=== PATIENT | female | born 1955 | race Caucasian/White ===

== ENCOUNTER 2020-07-29 11:57 | Outpatient (REF) | payer MEDICAID, SELFPAY ==
--- NOTE | 2020-07-29 | MM_ITS ---
EXAMINATION: MM DIAGNOSTIC DIGITAL BREAST TOMOSYNTHESIS, BILATERAL CLINICAL INFORMATION: Probable benign island fibroglandular tissue upper outer left breast for follow-up. The lifetime risk of breast cancer based on the Tyrer-Cuzick Model is 6%. COMPARISON: Mammography: 07/19/2019, 01/18/2019, 07/12/2018, 06/22/2018, 04/22/2016 TECHNIQUE: Digital breast tomosynthesis is performed in both the craniocaudal and mediolateral oblique views along with computer-aided detection (CAD). Synthesized 2D images are generated from the tomosynthesis. FINDINGS: There are scattered areas of fibroglandular density (ACR BI-RADS breast composition Category b). Parenchymal pattern is similar to prior studies. The island of fibroglandular tissue mid upper outer left breast is similar to prior exams. There is no developing density, mass, architectural abnormality. Neither breast shows abnormal calcifications. The axilla and skin contours are unremarkable. Results are provided to the patient at time of visit by the technologist. IMPRESSION: No significant changes from prior studies. Island fibroglandular tissue mid upper outer left breast stable and considered benign. ASSESSMENT: BI-RADS 2: Benign RECOMMENDATION: Routine annual mammography screening. This patient's information was entered into a reminder system with a target due date for their next mammogram.
== END 2020-07-29 11:58 | disposition home or self-care (01) ==
LOC: HO.MAMMO 11:57
PROVIDERS: PCP Internal Medicine; Visit Provider Advanced Practice Midwife
DX: R92.2 Inconclusive mammogram (principal)
CPT/HCPCS: 77062; 77066

== ENCOUNTER → 2020-09-11 10:09 | Outpatient (BNVA) | payer MEDICAID, SELFPAY | PROVIDERS: Visit Provider Nurse Practitioner Family | DX: Z76.89 Persons encountering health services in other specified circumstances (principal) ==

== ENCOUNTER 2020-09-16 10:15 | Outpatient (REF) | payer MEDICAID, SELFPAY ==
[2020-09-16 10:56] LABS: Hematocrit 35.3 % (37-47); Hemoglobin 11.3 g/dl (12.0-16.0); Mean Corpuscular Hemoglobin 27.2 pg (27.0-33.0); Mean Corpuscular Volume 84.9 fL (80-98); Mean Platelet Volume 10.3 fL (9.4-12.3); Platelet Count 259 X10*3/uL (160-400); Red Blood Count 4.16 X10*6/uL (4.20-5.50); Red Cell Distribution Width 14.3 % (11.0-16.0); White Blood Count 8.3 X10*3/uL (4.8-10.8)
[2020-09-16 11:24] LABS: Alanine Aminotransferase 16 U/L (0-31); Albumin Level 4.1 g/dL (3.5-5.0); Alkaline Phosphatase 91 U/L (39-117); Anion Gap 14 (12-20); Aspartate Amino Transferase 18 U/L (5-31); Bilirubin Total 0.5 mg/dL (0.0-1.0); Blood Urea Nitrogen 34 mg/dL (9-16); Calcium 9.3 mg/dL (8.4-10.2); Carbon Dioxide 28 mmol/L (22-29); Chloride 101 mmol/L (96-108); Estimated Glomerular Filt Rate 40; Glucose Random 192 mg/dL (60-115); Potassium 3.9 mmol/l (3.3-5.1); Sodium 139 mmol/L (135-145); Total Protein 6.9 g/dL (6.5-8.0)
== END 2020-09-16 10:16 | disposition home or self-care (01) ==
LOC: HO.LAB 10:15
PROVIDERS: Visit Provider Nurse Practitioner Family
DX: Z12.11 Encounter for screening for malignant neoplasm of colon (principal)
CPT/HCPCS: 36415; 80053; 85027

== ENCOUNTER 2020-09-16 10:52 | Outpatient (REF) | payer MEDICAID, SELFPAY | END 2020-09-16 10:53 | disposition home or self-care (01) | LOC: HO.LAB 10:52 | PROVIDERS: Visit Provider Internal Medicine | DX: Z20.828 Contact with and (suspected) exposure to other viral communicable diseases (principal) | CPT/HCPCS: C9803; U0003 ==

== ENCOUNTER 2020-11-19 10:15 | Day surgery (SDC) | payer MEDICAID, SELFPAY ==
[2020-11-13 14:59] VITALS: BMI 25.7
--- NOTE | 2020-11-18 10:40 | P.CONAN_ITS ---
Documented by User: Sharmin Louis 11/18/20 10:40 HPI - Anesthesia Eval Consult details Narrative: 64yo F for Colonoscopy PMFSH Active Problems Active Problems: 64yo F for Colonoscopy Past Medical History Medical History (Updated 11/13/20 @ 14:59 by Rosa M Nuñez) Diabetes mellitus GERD (gastroesophageal reflux disease) HTN (hypertension) Family History Family History (Updated 09/11/20 @ 10:13 by Purnima Esteban [facility]) Father No problems noted. Mother Family history of high blood pressure Surgical History Surgical History (Updated 11/13/20 @ 14:45 by Rosa M Nuñez) History of colonoscopy Hx laparoscopic cholecystectomy Hx of tubal ligation Social History Social History (Updated 11/13/20 @ 14:58 by Rosa M Nuñez) Are you a primary pharmacist critical care to a significant other at home: No Do you presently have visiting nurse or other home services: Yes Alcohol intake: never Smoking Status: Never smoker Use of substances other than those prescribed or required for medical reasons: No Have you been hit, kicked, punched, or otherwise hurt by someone within the past year? If so, by whom?: No Advance Directives Information Provided: No Recently lost weight without trying: No Meds Allergies Allergy/AdvReac Type Severity Reaction Status Date / Time avocado Allergy Mild Nausea Verified 11/13/20 14:56 Penicillins [PCN] Allergy Mild RASH Verified 11/13/20 15:05 prednisone Allergy Unknown Unknown Verified 11/13/20 14:44 Home Medications Medication Instructions Recorded Confirmed Type citalopram 10 mg tablet 10 mg PO DAILY 09/11/20 11/13/20 History docusate sodium 100 mg capsule 100 mg PO DAILY 09/11/20 11/13/20 History hydrochlorothiazide 25 mg tablet 25 mg PO DAILY 09/11/20 11/13/20 History lisinopril 40 mg tablet 40 mg PO DAILY 09/11/20 11/13/20 History metformin 500 mg tablet 500 mg PO DAILY 09/11/20 11/13/20 History metoprolol succinate 50 mg 50 mg PO DAILY 09/11/20 11/13/20 History tablet,extended release 24 hr omeprazole 20 mg capsule,delayed 20 mg PO DAILY 09/11/20 11/13/20 History release Exam Exam Date and Time: November 18, 2020 1040 Height,Weight and Vital Signs: Height 5 ft 4 in Weight 68.039 kg Assessment and Plan Assessment Anesthesia Assessment: Chart Reviewed Documented by User: Ninoska Solorzano 11/19/20 10:54 [facility] Past Medical History Medical History (Updated 11/13/20 @ 14:59 by Rosa M Nuñez) Diabetes mellitus GERD (gastroesophageal reflux disease) HTN (hypertension) Family History Family History (Updated 09/11/20 @ 10:13 by Purnima Esteban [employer]) Father No problems noted. Mother Family history of high blood pressure Surgical History Surgical History (Updated 11/13/20 @ 14:45 by Rosa M Nuñez) History of colonoscopy Hx laparoscopic cholecystectomy Hx of tubal ligation Social History Social History (Updated 11/13/20 @ 14:58 by Rosa M Nuñez) Are you a primary pharmacist critical care to a significant other at home: No Do you presently have visiting nurse or other home services: Yes Alcohol intake: never Smoking Status: Never smoker Use of substances other than those prescribed or required for medical reasons: No Have you been hit, kicked, punched, or otherwise hurt by someone within the past year? If so, by whom?: No Advance Directives Information Provided: No Recently lost weight without trying: No Meds Allergies Allergy/AdvReac Type Severity Reaction Status Date / Time avocado Allergy Mild Nausea Verified 11/13/20 14:56 Penicillins [PCN] Allergy Mild RASH Verified 11/13/20 15:05 prednisone Allergy Unknown Unknown Verified 11/13/20 14:44 Home Medications Medication Instructions Recorded Confirmed Type citalopram 10 mg tablet 10 mg PO DAILY 09/11/20 11/13/20 History docusate sodium 100 mg capsule 100 mg PO DAILY 09/11/20 11/13/20 History hydrochlorothiazide 25 mg tablet 25 mg PO DAILY 09/11/20 11/13/20 History lisinopril 40 mg tablet 40 mg PO DAILY 09/11/20 11/13/20 History metformin 500 mg tablet 500 mg PO DAILY 09/11/20 11/13/20 History metoprolol succinate 50 mg 50 mg PO DAILY 09/11/20 11/13/20 History tablet,extended release 24 hr omeprazole 20 mg capsule,delayed 20 mg PO DAILY 09/11/20 11/13/20 History release Exam Airway Mallampati Class: II TM Dist: >3cm Neck ROM: Full Denture: Upper Heart: RRR Lungs: CTA BL Assessment and Plan Assessment Anesthesia Assessment: Anesthesia Plan Discussed and Chart Reviewed Final Anesthetic Review NPO: Yes ASA Class: III Final Preanesthetic Review: No Changes in Pt Med Stat and Consent Obtained/Reviewed Patient Risk: Intermediate Procedure Risk: Intermediate Anesthetic Plan Anesthetic Plan: MAC: Disposition: Standard PACU
[2020-11-19 10:25] VITALS: BP 122/71; PULSE 69; RESP 20; TEMP 36.6; O2SAT 98
[2020-11-19 10:31] LABS: Glucose, Whole Blood 192 mg/dL (60-115)
[2020-11-19] MEDS: Lactated Ringers 1,000 ML 100 ML IVCONT (10:38)
--- NOTE | 2020-11-19 10:48 | MHC.SHP ---
Pre-Procedural Eval Section B Chief Complaint: screening Relevant Family History (Specify if Yes): No Relevant Social History: None Present Medications: see Short Stay Collaborative assessment Medical History: Significant History (Diabetes mellitus GERD (gastroesophageal reflux disease) HTN (hypertension)) History of Previous Operations: Relevant previous surgery/procedure and date(s) (lap chol, tubal ligation) Allergies: Allergies Allergy/AdvReac Type Severity Reaction Status Date / Time avocado Allergy Mild Nausea Verified 11/13/20 14:56 Penicillins [PCN] Allergy Mild RASH Verified 11/13/20 15:05 prednisone Allergy Unknown Unknown Verified 11/13/20 14:44 Review of Systems Sugical H&P ROS: Negative: Constitution, Cardiovascular, Respiratory, Neurological, Psychiatric, Hem-Onc, Allergic/Immunologic, Gastrointestinal, Genitourinary, Musculoskeletal, Integumentary, Endocrine and Eyes/Ears/Nose/Throat Exam Surgical H&P Exam: Normal: HEENT, Normal: Heart, Normal: Lungs, Normal: Extremities, Normal: Abdomen, Normal: Skin and Normal: Neurological Plan Diagnosis/Plan: Unchanged I have reviewed the history and physical and performed a pertinent physical examination on my patient. No changes have occurred unless specified.
--- NOTE | 2020-11-19 12:14 | PM.OP ---
Brief Operative Note Date of Service: 11/19/20 Pre-op diagnosis: colon screening Post-op diagnosis: same Procedure: see op note Surgeon: Leann Suárez MD Anesthesia: MAC Estimated blood loss (mL): 0 Condition: stable Disposition: PACU
[2020-11-19 12:15] VITALS: BP 90/49; PULSE 61; RESP 16; TEMP 36.1; O2SAT 94
--- NOTE | 2020-11-19 12:15 | P.OP_ITS ---
Operative Note Operative Note Date of Service: 11/19/20 Narrative: Operative Information Procedure Description: Colonoscopy COLONOSCOPY Instrument: Olympus variable stiffness pediatric scope 190L Colonoscopy Monitoring: Vital signs and clinical assessment, continuous EKG monitoring, Pulse oximetry, Carbon Dioxide monitoring and blood pressure monitoring were done throughout the procedure. Colon withdrawal time was 45 minutes. Procedure: The patient was placed in the left lateral decubitis position and pre-procedure medications were administered. After a digital rectal examination of the ano-rectum, the video colonoscope was inserted into the rectum and advanced through the colon to the cecum/TI. The colonoscope was slowly withdrawn in a retrograde panoramic fashion and the colon mucosa was carefully examined including a retroflexed view of the rectum. Findings and interventions are described below. Procedure Difficulty:Hard Tight anal rectal stricture noted at about 7-8 cm from anal verge initially unable to bypass with EGD scope or colonoscope slim scope was used and able to get to ascending colon but unable to intubate cecum under endoscopic view 10-11 mm ballon used to dilate stricture and then EGD scope was able to get to cecum and TI. Findings: Terminal Ileum-normal Cecum:normal Ascending Colon: normal Transverse Colon -normal Descending Colon:normal Sigmoid Colon: scattered wide mouthed tics Rectum: Retroflexion with small internal hemorrhoids, grade I, no mass seen Anorectum - scarred and atrophied canal, with friable tissue, biopsies taken Colon preparation: [place] Bowel Preparation Scale Right colon; 2 Transverse colon: 2 Left colon; 1 (0 = Unprepared colon segment with mucosa not seen due to solid stool that cannot be cleared. 1 = Portion of mucosa of the colon segment seen, but other areas of the colon segment not well seen due to staining, residual stool and/or opaque liquid. 2 = Minor amount of residual staining, small fragments of stool and/or opaque liquid, but mucosa of colon segment seen well. 3 = Entire mucosa of colon segment seen well with no residual staining, small fragments of stool or opaque liquid) Impression and Post Procedure Diagnosis: anal canal stricture diverticulosis Plan: High fiber diet leaflet Avoid straining at stool, epsom salts and sitz bath, anusol supps or cream prn, stool softeners daily Repeat Colonoscopy in 1 year or earlier if clinically indicated refer to Dr Del Angel for further eval, if bx with neoplasia then refer oncology as well Above findings were reviewed with the patient and relevant handouts were provided if indicated.
[2020-11-19 12:30] VITALS: BP 107/56; PULSE 61; RESP 16; TEMP 36.1; O2SAT 98
--- NOTE | 2020-11-19 13:01 | HO.POSTANES ---
Post Anesthesia Evaluation Post Anesthesia Evaluation Vital Signs: Vital Signs Temp Pulse Resp BP Pulse Ox 11/19/20 12:30 97.0 F 61 16 107/56 L 98 11/19/20 12:15 97 F 61 16 90/49 L 94 11/19/20 10:25 98 F 69 20 122/71 98 Anesthesia: Monitored Mental Status: Awake Pain Control: Satisfactory Nausea/Vomiting: None Hydration: Adequate Anesthesia-Related Issues: No Anes. Related Issues
== END 2020-11-19 13:24 | disposition home or self-care (01) ==
PROVIDERS: Visit Provider Internal Medicine Gastroenterology
PROC: 0DJD8ZZ Inspection of Lower Intestinal Tract, Via Natural or Artificial Opening Endoscopic (ICD-10-PCS; CPT 45378; principal; 2020-11-19 11:40)
DX: Z12.11 Encounter for screening for malignant neoplasm of colon (principal); K62.4 Stenosis of anus and rectum; K57.30 Diverticulosis of large intestine without perforation or abscess without bleeding; K64.0 First degree hemorrhoids; K21.9 Gastro-esophageal reflux disease without esophagitis; I10 Essential (primary) hypertension; E11.9 Type 2 diabetes mellitus without complications; Z79.84 Long term (current) use of oral hypoglycemic drugs; Z79.899 Other long term (current) drug therapy; Z88.0 Allergy status to penicillin
CPT/HCPCS: 45386; 45380; 82947; 88305; C1726

== ENCOUNTER → 2020-11-26 12:40 | Outpatient (BNVA) | payer MEDICAID, SELFPAY | PROVIDERS: Visit Provider Nurse Practitioner Family ==

== ENCOUNTER → 2020-12-02 15:01 | Outpatient (BNVA) | payer MEDICAID, SELFPAY | PROVIDERS: Visit Provider Nurse Practitioner Family ==

== ENCOUNTER → 2020-12-08 15:24 | Outpatient (BNVA) | payer MEDICAID, SELFPAY | PROVIDERS: PCP Emergency Medicine; Visit Provider Surgery | DX: K62.4 Stenosis of anus and rectum (principal) | CPT/HCPCS: 99202 ==

== ENCOUNTER 2020-12-26 09:18 | Day surgery (SDC) | payer MEDICAID, SELFPAY ==
[2020-12-19 15:31] VITALS: BMI 25.0
--- NOTE | 2020-12-25 09:44 | P.CONAN_ITS ---
Documented by User: Sharmin Louis 12/25/20 09:45 HPI - Anesthesia Eval Consult details Narrative: 65yo F for Exam Under Anesthesia with Biopsy s/p colonoscopy with MAC 11/2020 [facility] Active Problems Active Problems: All Active Problems (Updated 12/19/20 @ 15:19 by Linda Osborne) Rectal stricture (Acute) Constipation (Acute) Past Medical History Medical History (Updated 12/19/20 @ 15:19 by Linda Osborne) Constipation Diabetes mellitus GERD (gastroesophageal reflux disease) HTN (hypertension) On beta ina at home Rectal stricture Family History Family History Father No problems noted. Mother Family history of high blood pressure Surgical History Surgical History History of colonoscopy Hx laparoscopic cholecystectomy Hx of tubal ligation Social History Social History Household Members: None Are you a primary behavioral health care manager to a significant other at home: No Do you presently have visiting nurse or other home services: No Alcohol intake: current Alcohol intake frequency: does not drink Smoking Status: Never smoker Use of substances other than those prescribed or required for medical reasons: No Have you been hit, kicked, punched, or otherwise hurt by someone within the past year? If so, by whom?: No Advance Directives: No Advance Directives Information Provided: No Advance Directives on File: No Recently lost weight without trying: No Current occupational status: disabled Meds Allergies Allergy/AdvReac Type Severity Reaction Status Date / Time avocado Allergy Mild Nausea Verified 12/19/20 15:18 Penicillins [PCN] Allergy Mild RASH Verified 12/19/20 15:18 prednisone Allergy Unknown Unknown Verified 12/19/20 15:18 Home Medications Medication Instructions Recorded Confirmed Last Taken Type citalopram 10 mg tablet 10 mg PO DAILY 09/11/20 12/19/20 Unknown History hydrochlorothiazide 25 mg tablet 25 mg PO DAILY 09/11/20 12/08/20 Unknown History lisinopril 40 mg tablet 40 mg PO DAILY 09/11/20 12/19/20 Unknown History metformin 500 mg tablet 500 mg PO DAILY 09/11/20 12/19/20 Unknown History metoprolol succinate 50 mg 50 mg PO DAILY 09/11/20 12/19/20 Unknown History tablet,extended release 24 hr aspirin 81 mg tablet,delayed 81 mg PO DAILY 12/08/20 12/19/20 Unknown History release acetaminophen [Pain Relief Extra 1 tab PO Q8H PRN 12/19/20 12/19/20 Unknown History Strength] albuterol sulfate [ProAir HFA] 2 puff PO Q4-6H PRN 12/19/20 12/19/20 Unknown History amlodipine 1 tab PO DAILY 12/19/20 12/19/20 Unknown History latanoprost 1 drp OPHTHALMIC (EYE) BEDTIME 12/19/20 12/19/20 Unknown History multivitamin [Daily-Tania] 1 tab PO DAILY 12/19/20 12/19/20 Unknown History polyvinyl alcohol [Artificial 1 drp OPHTHALMIC (EYE) QID 12/19/20 12/19/20 Unknown History Tears (polyvin alc)] Exam Exam Date and Time: December 25, 2020 0944 Height,Weight and Vital Signs: Height 5 ft 4 in Weight 66.224 kg Assessment and Plan Assessment Anesthesia Assessment: Chart Reviewed Documented by User: Marya Gonzales 12/26/20 09:25 [facility] Past Medical History Medical History (Updated 12/19/20 @ 15:19 by Linda Osborne) Constipation Diabetes mellitus GERD (gastroesophageal reflux disease) HTN (hypertension) On beta ina at home Rectal stricture Family History Family History Father No problems noted. Mother Family history of high blood pressure Surgical History Surgical History History of colonoscopy Hx laparoscopic cholecystectomy Hx of tubal ligation Social History Social History Household Members: None Are you a primary behavioral health care manager to a significant other at home: No Do you presently have visiting nurse or other home services: No Alcohol intake: current Alcohol intake frequency: does not drink Smoking Status: Never smoker Use of substances other than those prescribed or required for medical reasons: No Have you been hit, kicked, punched, or otherwise hurt by someone within the past year? If so, by whom?: No Advance Directives: No Advance Directives Information Provided: No Advance Directives on File: No Recently lost weight without trying: No Current occupational status: disabled Meds Allergies Allergy/AdvReac Type Severity Reaction Status Date / Time avocado Allergy Mild Nausea Verified 12/19/20 15:18 Penicillins [PCN] Allergy Mild RASH Verified 12/19/20 15:18 prednisone Allergy Unknown Unknown Verified 12/19/20 15:18 Home Medications Medication Instructions Recorded Confirmed Last Taken Type citalopram 10 mg tablet 10 mg PO DAILY 09/11/20 12/19/20 Unknown History hydrochlorothiazide 25 mg tablet 25 mg PO DAILY 09/11/20 12/08/20 Unknown History lisinopril 40 mg tablet 40 mg PO DAILY 09/11/20 12/19/20 Unknown History metformin 500 mg tablet 500 mg PO DAILY 09/11/20 12/19/20 Unknown History metoprolol succinate 50 mg 50 mg PO DAILY 09/11/20 12/19/20 Unknown History tablet,extended release 24 hr aspirin 81 mg tablet,delayed 81 mg PO DAILY 12/08/20 12/19/20 Unknown History release acetaminophen [Pain Relief Extra 1 tab PO Q8H PRN 12/19/20 12/19/20 Unknown History Strength] albuterol sulfate [ProAir HFA] 2 puff PO Q4-6H PRN 12/19/20 12/19/20 Unknown History amlodipine 1 tab PO DAILY 12/19/20 12/19/20 Unknown History latanoprost 1 drp OPHTHALMIC (EYE) BEDTIME 12/19/20 12/19/20 Unknown History multivitamin [Daily-Tania] 1 tab PO DAILY 12/19/20 12/19/20 Unknown History polyvinyl alcohol [Artificial 1 drp OPHTHALMIC (EYE) QID 12/19/20 12/19/20 Unknown History Tears (polyvin alc)] Exam Airway Mallampati Class: III Neck ROM: Full Denture: Upper Heart: RRR
[2020-12-26] VITALS (7 sets, daily range): BP systolic 113–128; BP diastolic 48–63; PULSE 60–71; RESP 16–20; TEMP 36.1–36.8; O2SAT 98–100
[2020-12-26 09:57] LABS: Glucose, Whole Blood 162 mg/dL (60-115)
[2020-12-26] MEDS: Lactated Ringers 1,000 ML 100 ML IVCONT (10:00)
--- NOTE | 2020-12-26 10:18 | MHC.SHP ---
Pre-Procedural Eval Section B Chief Complaint: Rectal stricture Allergies: Allergies Allergy/AdvReac Type Severity Reaction Status Date / Time avocado Allergy Mild Nausea Verified 12/26/20 09:27 Penicillins [PCN] Allergy Mild RASH Verified 12/26/20 09:27 prednisone Allergy Unknown Unknown Verified 12/26/20 09: Plan I have reviewed the history and physical and performed a pertinent physical examination on my patient. No changes have occurred unless specified.
--- NOTE | 2020-12-26 11:44 | P.OP_ITS ---
Operative Note Operative Note Date of Service: 12/26/20 Narrative: Preop diagnosis: Anal stricture Postop diagnosis: Anal stricture Procedure done: Exam under anesthesia, biopsy of an anal stricture Surgeon: Jesus Del Angel MD The patient is a 65 year female who had undergone a colonoscopy and was noted to have an anal stricture. She was therefore referred to me. She otherwise denies any significant anal pain. She states that she did not have any problems with bowel movements and denied constipation. She denies any significant bleeding per rectum. I therefore scheduled her for exam under anesthesia as examination in the office revealed a tight stricture in the anal canal. She understood the technique of procedure and she was aware of the risks, benefits, and alternatives. She was brought to the operating room and placed in prone prosper-knife position under general anesthesia via endotracheal tube. The buttocks were retracted with wide tape laterally. The perianal area was prepped in the usual sterile fashion. A surgical time-out was done. The perianal area was infiltrated with lidocaine 1%. I then attempted to introduce the Pam-Burton retractor into the anal orifice. However, the tight stricture in the anal canal was immediately encountered. I also attempted to insert the small-sized Anthony retractor instead but again this could not be inserted through the anal canal. I did a digital exam and this tight stricture was noted and could accommodate only my small 5th finger. I did not feel any obvious induration nor mass. I had asked the surgical brace maker to retract the anal opening so I could visualize this stricture directly. I took a biopsy of the area of the stricture using a DeBakey forceps and scissors. The visible area of the stricture otherwise did not appear to have a significant lesion. I applied a Gel-Foam packing into the anal canal for hemostasis. Once hemostasis was then confirmed I proceeded proceeded to infiltrate the perianal area with Marcaine 0.5% for postop analgesia. The procedure was then completed The patient tolerated the procedure well. There were no immediate complications. Estimated blood loss was about 2 cc. The patient was extubated without difficulty and transferred to the recovery room with stable vital signs.
--- NOTE | 2020-12-26 11:53 | PM.OP ---
Brief Operative Note Date of Service: 12/26/20 Pre-op diagnosis: Anal stricture Post-op diagnosis: same Surgeon: Jesus Del Angel MD Anesthesia: GLMA Estimated blood loss (mL): 5 Pathology: other (Biopsy of anal stricture) Condition: stable Disposition: PACU
[2020-12-26] MEDS: Throat Lozenge, Medicated LOZENGE 1 LOZENGE MUCOUS MEM (12:17)
--- NOTE | 2020-12-26 16:09 | HO.POSTANES ---
Post Anesthesia Evaluation Post Anesthesia Evaluation Vital Signs: Vital Signs Temp Pulse Resp BP Pulse Ox 12/26/20 12:35 97.0 F 60 17 121/60 99 12/26/20 12:20 65 16 126/63 98 12/26/20 12:05 64 18 122/57 L 100 12/26/20 12:00 69 20 113/57 L 99 12/26/20 11:55 68 16 117/56 L 100 12/26/20 11:50 98.1 F 71 17 117/48 L 98 12/26/20 09:49 98.3 F 65 16 128/61 99 Anesthesia: General Mental Status: Awake Pain Control: Satisfactory Nausea/Vomiting: None Hydration: Adequate Anesthesia-Related Issues: No Anes. Related Issues
== END 2020-12-26 13:31 | disposition home or self-care (01) ==
PROVIDERS: Visit Provider Surgery
PROC: (CPT 45100; principal; 2020-12-26 10:40)
DX: K62.4 Stenosis of anus and rectum (principal); I10 Essential (primary) hypertension; E11.9 Type 2 diabetes mellitus without complications; Z79.84 Long term (current) use of oral hypoglycemic drugs; Z79.82 Long term (current) use of aspirin; Z79.899 Other long term (current) drug therapy; Z88.0 Allergy status to penicillin; Z88.8 Allergy status to other drugs, medicaments and biological substances
CPT/HCPCS: 45100; 82947; 88305; J2250

== ENCOUNTER → 2020-12-30 13:19 | Outpatient (BNVA) | payer MEDICAID, SELFPAY | PROVIDERS: Visit Provider Nurse Practitioner Family ==

== ENCOUNTER → 2021-01-13 12:54 | Outpatient (BNVA) | payer MEDICAID, SELFPAY | PROVIDERS: Visit Provider Nurse Practitioner Family | DX: K59.00 Constipation, unspecified (principal) | CPT/HCPCS: 99212 ==

== ENCOUNTER 2021-01-19 12:50 | Emergency (ER) | payer MEDICAID, SELFPAY ==
[2021-01-19] VITALS (10 sets, daily range): BP systolic 145–169; BP diastolic 63–102; PULSE 50–79; RESP 14–19; TEMP 36.6; O2SAT 99–100; BMI 26.2
[2021-01-19 13:50] LABS: MANUAL DIFF FLAG NO
[2021-01-19 13:51] LABS: Basophils Percent Auto 0.2 % (0-2); Eosinophils Absolute Auto 0.1 X10*3/uL (0.0-0.4); Eosinophils Percent Auto 1.4 % (0-4); Hematocrit 33.4 % (37-47); Hemoglobin 10.5 g/dl (12.0-16.0); Imm Gran Abs Auto 0.01 X10*3/uL (0.00-0.03); Imm Gran Pct Auto 0.2 % (0.0-0.4); Lymphocytes Absolute Auto 2.5 X10*3/uL (1.2-4.9); Lymphocytes Percent Auto 40.3 % (20-40); Mean Corpuscular HGB Conc 31.4 g/dl (31.0-35.0); Mean Corpuscular Hemoglobin 27.3 pg (27.0-33.0); Mean Corpuscular Volume 86.8 fL (80-98); Monocytes Absolute Auto 0.5 X10*3/uL (0.1-1.2); Monocytes Percent Auto 8.1 % (2-11); Neutrophils Absolute Auto 3.1 X10*3/uL (2.0-8.3); Neutrophils Percent Auto 49.8 % (45-73); Platelet Count 228 X10*3/uL (160-400); Red Blood Count 3.85 X10*6/uL (4.20-5.50); Red Cell Distribution Width 14.6 % (11.0-16.0); White Blood Count 6.3 X10*3/uL (4.8-10.8)
[2021-01-19 14:19] LABS: Anion Gap 10 (12-20); Blood Urea Nitrogen 20 mg/dL (9-16); Calcium 8.8 mg/dL (8.4-10.2); Carbon Dioxide 27 mmol/L (22-29); Chloride 107 mmol/L (96-108); Creatinine Clr Calc Pharmacy 50.7; Estimated Glomerular Filt Rate 54; Glucose Random 155 mg/dL (60-115); Potassium 3.8 mmol/L (3.3-5.1); Sodium 140 mmol/L (135-145)
[2021-01-19 15:56] LABS: MANUAL DIFF FLAG NO
[2021-01-19 15:57] LABS: Basophils Percent Auto 0.3 % (0-2); Eosinophils Absolute Auto 0.1 X10*3/uL (0.0-0.4); Eosinophils Percent Auto 1.4 % (0-4); Hematocrit 33.9 % (37-47); Imm Gran Abs Auto 0.01 X10*3/uL (0.00-0.03); Imm Gran Pct Auto 0.1 % (0.0-0.4); Lymphocytes Absolute Auto 3.1 X10*3/uL (1.2-4.9); Lymphocytes Percent Auto 44.5 % (20-40); Mean Corpuscular HGB Conc 32.4 g/dl (31.0-35.0); Mean Corpuscular Hemoglobin 28.1 pg (27.0-33.0); Mean Corpuscular Volume 86.7 fL (80-98); Mean Platelet Volume 9.9 fL (9.4-12.3); Monocytes Absolute Auto 0.6 X10*3/uL (0.1-1.2); Monocytes Percent Auto 9.1 % (2-11); Neutrophils Absolute Auto 3.1 X10*3/uL (2.0-8.3); Neutrophils Percent Auto 44.6 % (45-73); Platelet Count 225 X10*3/uL (160-400); Red Blood Count 3.91 X10*6/uL (4.20-5.50); Red Cell Distribution Width 14.6 % (11.0-16.0); White Blood Count 7.1 X10*3/uL (4.8-10.8)
--- NOTE | 2021-01-19 15:57 | ED_ITS ---
HPI - General Adult General Chief complaint: General Medical Stated complaint: RECTAL BLEED X'S 2 MONTHS W/CONSTIPATION Time Seen by Provider: 01/19/21 15:46 Source: patient Mode of arrival: wheelchair Limitations: no limitations History of Present Illness HPI narrative: 65-year-old female with history of Diabetes mellitus, GERD, HTN, History of Previous Operations: lap chol, tubal ligation, colonoscopy, anal str icture with biopsy Colonoscopy and November [address] Suárez Anal stricture biopsy on December [address] Del Angel States has been having slight bleeding from rectum since intermittently pain Pronounced bleeding today having bed she soaked and fabiola blood with large clots. Colonoscopy findings Related Data Home Medications Medication Instructions Recorded Confirmed hydrochlorothiazide 25 mg tablet 25 mg PO DAILY 09/11/20 01/19/21 lisinopril 40 mg tablet 40 mg PO DAILY 09/11/20 01/19/21 metformin 500 mg tablet 500 mg PO BIDWM 09/11/20 01/19/21 metoprolol succinate 50 mg 50 mg PO DAILY 09/11/20 01/19/21 tablet,extended release 24 hr aspirin 81 mg tablet,delayed 81 mg PO DAILY 12/08/20 01/19/21 release acetaminophen [Pain Relief Extra 1 tab PO Q8H PRN 12/19/20 01/19/21 Strength] albuterol sulfate [ProAir HFA] 2 puff PO Q4-6H PRN 12/19/20 01/19/21 amlodipine 1 tab PO DAILY 12/19/20 01/19/21 latanoprost 1 drp OPHTHALMIC (EYE) BEDTIME 12/19/20 01/19/21 multivitamin [Daily-Tania] 1 tab PO DAILY 12/19/20 01/19/21 polyvinyl alcohol [Artificial 1 drp OPHTHALMIC (EYE) QID 12/19/20 01/19/21 Tears (polyvin alc)] citalopram 1 tab PO DAILY 01/19/21 01/19/21 glipizide 1 tab PO QAM 01/19/21 01/19/21 Previous Rx's Medication Instructions Recorded polyethylene glycol 3350 17 17 g PO ONCE #510 g 09/11/20 gram/dose oral powder docusate sodium 100 mg capsule 100 mg PO BEDTIME #30 cap 12/02/20 methylcellulose (laxative) 500 mg 500 mg PO DAILY #30 tab 12/02/20 tablet omeprazole 20 mg capsule,delayed 20 mg PO DAILY #30 cap 12/02/20 release sennosides 8.6 mg tablet 8.6 mg PO BEDTIME PRN #30 tab 12/30/20 magnesium oxide 400 mg PO DAILY #30 cap 01/13/21 Allergies Allergy/AdvReac Type Severity Reaction Status Date / Time avocado Allergy Mild Nausea Verified 01/13/21 13:17 Penicillins [PCN] Allergy Mild RASH Verified 01/13/21 13:17 prednisone Allergy Unknown Unknown Verified 01/13/21 13:17 [facility] Past Medical History Medical History Asthma Constipation Diabetes mellitus GERD (gastroesophageal reflux disease) HTN (hypertension) On beta ina at home Rectal stricture Surgical History History of colonoscopy Hx laparoscopic cholecystectomy Hx of excision of mass Hx of tubal ligation Family History Family History Father No problems noted. Mother Family history of high blood pressure Social History Social History Household Members: None Alcohol intake: unknown Smoking Status: Unknown if ever smoked Use of substances other than those prescribed or required for medical reasons: Unknown Advance Directives: No Advance Directives Information Provided: No Current occupational status: disabled Physical Exam Vital Signs: Vital Signs: Last Vital Signs Temp 97.9 F 01/19/21 16:31 Pulse 68 01/19/21 16:31 Resp 14 01/19/21 16:31 BP 161/66 H 01/19/21 16:31 Pulse Ox 99 01/19/21 16:21 Body Mass Index 26.2 Course Reevaluation(s) Reevaluation #1: 1545 Large clots from the rectum hemorrhaging fabiola blood Bed had saturated from her lower back to her knee area in blood. She is pale-appearing she and feeling a little bit does slightly appear anxious as well. Her vitals are stable at this time. Bilateral AC large-bore IV Type and screen order Labs Stat page to GI as well as General surgery 2 units of uncross matched blood ordered Consented Family at bedside Hemodynamically stable at this time having large rectal bleeding with clots in fabiola blood. Reevaluation #2: 1550 Consultations Consultation #1: [address] Del Angel at bedside Evaluate patient recommendation for angiogram did not have the services here recommend transfer to [facility] or appropriate service area. Consultation #2: [address] Griffin GI require angiogram. Also [facility] call back The medical center is currently a capacity not accepting any patients except for trauma Defer on transfer Page placed to [facility] Consultation #3: [id number] xfer line for ED to ED accepting Dr. Mcgill Will transfer by air Medical Decision Making Medical Records Medical records reviewed: Yes I reviewed the patient's medical records. Medical records narrative: Attached are notes from GI General surgery [address] [address] Operative NoteSigned Patient: Leoncio Warren#: [id number]: 7Acct:[id number]/Sex: 65 / FLoc:HO.SSS Attending Dr: Jesus Del Angel MD cc: Jesus Del Angel MD; Physician,Unknown ~ Operative Note Operative Note Date of Service: 12/26/20 Narrative: Preop diagnosis: Anal stricture Postop diagnosis: Anal stricture Procedure done: Exam under anesthesia, biopsy of an anal stricture Surgeon: Jesus Del Angel MD The patient is a 65 year female who had undergone a colonoscopy and was noted to have an anal stricture. She was therefore referred to me. She otherwise denies any significant anal pain. She states that she did not have any problems with bowel movements and denied constipation. She denies any significant bleeding per rectum. I therefore scheduled her for exam under anesthesia as examination in the office revealed a tight stricture in the anal canal. She understood the technique of procedure and she was aware of the risks, benefits, and alternatives. She was brought to the operating room and placed in prone prosper-knife position under general anesthesia via endotracheal tube. The buttocks were retracted with wide tape laterally. The perianal area was prepped in the usual sterile fashion. A surgical time-out was done. The perianal area was infiltrated with lidocaine 1%. I then attempted to introduce the Pam-Burton retractor into the anal orifice. However, the tight stricture in the anal canal was immediately encountered. I also attempted to insert the small-sized Anthony retractor instead but again this could not be inserted through the anal canal. I did a digital exam and this tight stricture was noted and could accommodate only my small 5th finger. I did not feel any obvious induration nor mass. I had asked the field installation technician to retract the anal opening so I could visualize this stricture directly. I took a biopsy of the area of the stricture using a DeBakey forceps and scissors. The visible area of the stricture otherwise did not appear to have a significant lesion. I applied a Gel-Foam packing into the anal canal for hemostasis. Once hemostasis was then confirmed I proceeded proceeded to infiltrate the p erianal area with Marcaine 0.5% for postop analgesia. The procedure was then completed The patient tolerated the procedure well. There were no immediate complications. Estimated blood loss was about 2 cc. The patient was extubated without difficulty and transferred to the recovery room with stable vital signs. Dictated By:Jesus Del Angel MDSigned By:<Electronically signed by Jesus szymanski MD>12/26/20 1341 DD/ 1144TD/TT: 12/26/20 1144Transcriptionist: GI note [place] [id number] Operative NoteSigned Patient: Leoncio Warren#: [id number]: 7Acct:[id number]/Sex: 64 / FADM Date: 11/19/20Loc:HO.SSS Attending Dr: Leann Suárez MD cc: Leann Suárez MD; Physician,Unknown ~ Operative Note Operative Note Date of Service: 11/19/20 Narrative: Operative Information Procedure Description: Colonoscopy COLONOSCOPY Instrument: Olympus variable stiffness pediatric scope 190L Colonoscopy Monitoring: Vital signs and clinical assessment, continuous EKG monitoring, Pulse oximetry, Carbon Dioxide monitoring and blood pressure monitoring were done throughout the procedure. Colon withdrawal time was 45 minutes. Procedure: The patient was placed in the left lateral decubitis position and pre-procedure medications were administered. After a digital rectal examination of the ano-rectum, the video colonoscope was inserted into the rectum and advanced through the colon to the cecum/TI. The colonoscope was slowly withdrawn in a retrograde panoramic fashion and the colon mucosa was carefully examined including a retroflexed view of the rectum. Findings and interventions are described below. Procedure Difficulty:Hard Tight anal rectal stricture noted at about 7-8 cm from anal verge initially unable to bypass with EGD scope or colonoscope slim scope was used and able to get to ascending colon but unable to intubate cecum under endoscopic view 10-11 mm ballon used to dilate stricture and then EGD scope was able to get to cecum and TI. Findings: Terminal Ileum-normal Cecum:normal Ascending Colon: normal Transverse Colon -normal Descending Colon:normal Sigmoid Colon: scattered wide mouthed tics Rectum: Retroflexion with small internal hemorrhoids, grade I, no mass seen Anorectum - scarred and atrophied canal, with friable tissue, biopsies taken Colon preparation: [place] Bowel Preparation Scale Right colon; 2 Transverse colon: 2 Left colon; 1 (0 = Unprepared colon segment with mucosa not seen due to solid stool that cannot be cleared. 1 = Portion of mucosa of the colon segment seen, but other areas of the colon segment not well seen due to staining, residual stool and/or opaque liquid. 2 = Minor amount of residual staining, small fragments of stool and/or opaque liquid, but mucosa of colon segment seen well. 3 = Entire mucosa of colon segment seen well with no residual staining, small fragments of stool or opaque liquid) Impression and Post Procedure Diagnosis: anal canal stricture diverticulosis Plan: High fiber diet leaflet Avoid straining at stool, epsom salts and sitz bath, anusol supps or cream prn, stool softeners daily Repeat Colonoscopy in 1 year or earlier if clinically indicated refer to Dr Del Angel for further eval, if bx with neoplasia then refer oncology as well Above findings were reviewed with the patient and relevant handouts were provided if indicated. Dictated By:Leann Suárez MDSigned By:<Electronically signed by Leann Suárez MD>11/19/20 1222 DD/ 1215TD/TT: 11/19/20 1215Transcriptionist: Lab Data Result diagrams: 01/19/21 15:51 01/19/21 15:51 Labs: Lab Results 01/19/21 01/19/21 01/19/21 Range/Units 13:44 13:44 13:44 WBC 6.3 (4.8-10.8) X10*3/uL RBC 3.85 L (4.20-5.50) X10*6/uL Hgb 10.5 L (12.0-16.0) g/dl Hct 33.4 L (37-47) % MCV 86.8 (80-98) fL MCH 27.3 (27.0-33.0) pg MCHC 31.4 (31.0-35.0) g/dl RDW 14.6 (11.0-16.0) % Plt Count 228 (160-400) X10*3/uL MPV 10.0 (9.4-12.3) fL Immature Gran % (Auto) 0.2 (0.0-0.4) % Neut % (Auto) 49.8 (45-73) % Lymph % (Auto) 40.3 H (20-40) % [place] % (Auto) 8.1 (2-11) % Eos % (Auto) 1.4 (0-4) % Baso % (Auto) 0.2 (0-2) % Lymph # (Auto) 2.5 (1.2-4.9) X10*3/uL [place] # (Auto) 0.5 (0.1-1.2) X10*3/uL Eos # (Auto) 0.1 (0.0-0.4) X10*3/uL Baso # (Auto) 0.0 (0.0-0.2) X10*3/uL Abs Immat Gran (auto) 0.01 (0.00-0.03) X10*3/uL Absolute Neuts (auto) 3.1 (2.0-8.3) X10*3/uL Absolute Nucleated RBC 0.000 (0.0-0.012) X10*3/uL Nucleated RBC % (auto) 0.0 (0.0-0.2) /100WBC PT (10.8-13.0) SEC INR (0.9-1.1) APTT (24.1-38.0) SEC Hold Blue Top SEE NOTE Sodium 140 (135-145) mmol/L Potassium 3.8 (3.3-5.1) mmol/L Chloride 107 (96-108) mmol/L Carbon Dioxide 27 (22-29) mmol/L Anion Gap 10 L (12-20) BUN 20 H (9-16) mg/dL Creatinine 1.03 (0.5-1.4) mg/dL Estim Creat Clear Calc 50.7 Estimated GFR 54 Random Glucose 155 H (60-115) mg/dL Calcium 8.8 (8.4-10.2) mg/dL Total Bilirubin (0.0-1.0) mg/dL AST (5-31) U/L ALT (0-31) U/L Alkaline Phosphatase (39-117) U/L Total Protein (6.5-8.0) g/dL Albumin (3.5-5.0) g/dL COVID-19 (LUBNA) (Negative) COVID-19 Clin Com Blood Type Antibody Screen Crossmatch 01/19/21 01/19/21 01/19/21 Range/Units 15:51 15:51 15:51 WBC 7.1 (4.8-10.8) X10*3/uL RBC 3.91 L (4.20-5.50) X10*6/uL Hgb 11.0 L (12.0-16.0) g/dl Hct 33.9 L (37-47) % MCV 86.7 (80-98) fL MCH 28.1 (27.0-33.0) pg MCHC 32.4 (31.0-35.0) g/dl RDW 14.6 (11.0-16.0) % Plt Count 225 (160-400) X10*3/uL MPV 9.9 (9.4-12.3) fL Immature Gran % (Auto) 0.1 (0.0-0.4) % Neut % (Auto) 44.6 L (45-73) % Lymph % (Auto) 44.5 H (20-40) % [place] % (Auto) 9.1 (2-11) % Eos % (Auto) 1.4 (0-4) % Baso % (Auto) 0.3 (0-2) % Lymph # (Auto) 3.1 (1.2-4.9) X10*3/uL [place] # (Auto) 0.6 (0.1-1.2) X10*3/uL Eos # (Auto) 0.1 (0.0-0.4) X10*3/uL Baso # (Auto) 0.0 (0.0-0.2) X10*3/uL Abs Immat Gran (auto) 0.01 (0.00-0.03) X10*3/uL Absolute Neuts (auto) 3.1 (2.0-8.3) X10*3/uL Absolute Nucleated RBC 0.000 (0.0-0.012) X10*3/uL Nucleated RBC % (auto) 0.0 (0.0-0.2) /100WBC PT 12.6 (10.8-13.0) SEC INR 1.1 (0.9-1.1) APTT 31.9 (24.1-38.0) SEC Hold Blue Top Sodium 141 (135-145) mmol/L Potassium 3.6 (3.3-5.1) mmol/L Chloride 107 (96-108) mmol/L Carbon Dioxide 25 (22-29) mmol/L Anion Gap 13 (12-20) BUN 20 H (9-16) mg/dL Creatinine 1.03 (0.5-1.4) mg/dL Estim Creat Clear Calc 50.7 Estimated GFR 54 Random Glucose 131 H (60-115) mg/dL Calcium 9.3 (8.4-10.2) mg/dL Total Bilirubin 0.6 (0.0-1.0) mg/dL AST 16 (5-31) U/L ALT 16 (0-31) U/L Alkaline Phosphatase 65 D (39-117) U/L Total Protein 6.7 (6.5-8.0) g/dL Albumin 4.0 (3.5-5.0) g/dL COVID-19 (LUBNA) (Negative) COVID-19 Clin Com Blood Type Antibody Screen Crossmatch 01/19/21 01/19/21 Range/Units 16:03 16:10 WBC (4.8-10.8) X10*3/uL RBC (4.20-5.50) X10*6/uL Hgb (12.0-16.0) g/dl Hct (37-47) % MCV (80-98) fL MCH (27.0-33.0) pg MCHC (31.0-35.0) g/dl RDW (11.0-16.0) % Plt Count (160-400) X10*3/uL MPV (9.4-12.3) fL Immature Gran % (Auto) (0.0-0.4) % Neut % (Auto) (45-73) % Lymph % (Auto) (20-40) % [place] % (Auto) (2-11) % Eos % (Auto) (0-4) % Baso % (Auto) (0-2) % Lymph # (Auto) (1.2-4.9) X10*3/uL [place] # (Auto) (0.1-1.2) X10*3/uL Eos # (Auto) (0.0-0.4) X10*3/uL Baso # (Auto) (0.0-0.2) X10*3/uL Abs Immat Gran (auto) (0.00-0.03) X10*3/uL Absolute Neuts (auto) (2.0-8.3) X10*3/uL Absolute Nucleated RBC (0.0-0.012) X10*3/uL Nucleated RBC % (auto) (0.0-0.2) /100WBC PT (10.8-13.0) SEC INR (0.9-1.1) APTT (24.1-38.0) SEC Hold Blue Top Sodium (135-145) mmol/L Potassium (3.3-5.1) mmol/L Chloride (96-108) mmol/L Carbon Dioxide (22-29) mmol/L Anion Gap (12-20) BUN (9-16) mg/dL Creatinine (0.5-1.4) mg/dL Estim Creat Clear Calc Estimated GFR Random Glucose (60-115) mg/dL Calcium (8.4-10.2) mg/dL Total Bilirubin (0.0-1.0) mg/dL AST (5-31) U/L ALT (0-31) U/L Alkaline Phosphatase (39-117) U/L Total Protein (6.5-8.0) g/dL Albumin (3.5-5.0) g/dL COVID-19 (LUBNA) Negative (Negative) COVID-19 Clin Com See Note Blood Type A Positive Antibody Screen NEGATIVE Crossmatch See Detail Critical Care Time Critical Care Time Critical Care Time: Yes Total Critical Care Time: 65 Attestation: GI hemorrhage, requiring rapid intervention including transfusion, consultation with multiple specialties including General surgery, GI, outside Centers for transfer and arrangement. Monitoring of hemodynamics stability. Discharge Plan Discharge Clinical Impression: Acute GI hemorrhage Patient Disposition: er [facility] Transfer Details: [facility] ED Prescriptions: No Action citalopram 20 mg tablet 1 tab PO DAILY RF: 0 glipizide 2.5 mg tablet extended release 24hr 1 tab PO QAM RF: 0 multivitamin [Daily-Tania] Tablet 1 tab PO DAILY RF: 0 latanoprost 0.005 % drops 1 drp ophthalmic (eye) BEDTIME RF: 0 polyvinyl alcohol [Artificial Tears (polyvin alc)] 1.4 % drops 1 drp ophthalmic (eye) QID RF: 0 amlodipine 5 mg tablet 1 tab PO DAILY RF: 0 acetaminophen [Pain Relief Extra Strength] 500 mg tablet 1 tab PO Q8H PRN (Reason: Pain) RF: 0 albuterol sulfate [ProAir HFA] 90 mcg/actuation HFA aerosol inhaler 2 puff PO Q4-6H PRN (Reason: Wheezing) RF: 0 metformin 500 mg tablet 500 mg PO BIDWM RF: 0 hydrochlorothiazide 25 mg tablet 25 mg PO DAILY RF: 0 metoprolol succinate 50 mg tablet extended release 24 hr 50 mg PO DAILY RF: 0 lisinopril 40 mg tablet 40 mg PO DAILY RF: 0 polyethylene glycol 3350 [Miralax] 17 gram/dose powder 17 g PO ONCE Qty: 510 RF: 0 aspirin 81 mg tablet,delayed release (DR/EC) 81 mg PO DAILY RF: 0 Citrucel 500 mg tablet 500 mg PO DAILY Qty: 30 RF: 2 docusate sodium 100 mg capsule 100 mg PO BEDTIME Qty: 30 RF: 2 omeprazole 20 mg capsule,delayed release(DR/EC) 20 mg PO DAILY Qty: 30 RF: 2 sennosides [Natural Senna Laxative] 8.6 mg tablet 8.6 mg PO BEDTIME PRN (Reason: constipation) Qty: 30 RF: 1 magnesium oxide 400 mg magnesium capsule 400 mg PO DAILY Qty: 30 RF: 2
[2021-01-19 16:03] LABS: INTERNATIONAL NORM RATIO 1.1 (0.9-1.1); Prothrombin Time 12.6 SEC (10.8-13.0)
[2021-01-19 16:06] LABS: Partial Thromboplastin Time 31.9 SEC (24.1-38.0)
--- NOTE | 2021-01-19 16:06 | PC.NURSE ---
bilateral ac 18g placed, 1l bolus started. large amount of bright red blood and clots noted. will call clerk and md perez at bedside.
[2021-01-19] MEDS: 0.9 % Sodium Chloride 500 ML IV (16:08)
[2021-01-19] MEDS: 0.9 % Sodium Chloride 1,000 ML 999 ML IV (16:08)
[2021-01-19 16:26] LABS: Alanine Aminotransferase 16 U/L (0-31); Alkaline Phosphatase 65 U/L (39-117); Anion Gap 13 (12-20); Aspartate Amino Transferase 16 U/L (5-31); Bilirubin Total 0.6 mg/dL (0.0-1.0); Blood Urea Nitrogen 20 mg/dL (9-16); Calcium 9.3 mg/dL (8.4-10.2); Carbon Dioxide 25 mmol/L (22-29); Chloride 107 mmol/L (96-108); Creatinine Clr Calc Pharmacy 50.7; Estimated Glomerular Filt Rate 54; Glucose Random 131 mg/dL (60-115); Potassium 3.6 mmol/L (3.3-5.1); Sodium 141 mmol/L (135-145); Total Protein 6.7 g/dL (6.5-8.0)
[2021-01-19] MEDS: LORazepam 2 MG/ML VIAL 1 MG IVPUSH (16:30)
[2021-01-19 16:37] LABS: COVID-19 Test Negative (Negative)
--- NOTE | 2021-01-19 17:07 | P.CONGS_ITS ---
History of Present Illness Consult details Consult date: 01/19/21 Narrative: 65-year-old female who is known to me, seen in the emergency room because of rectal bleeding. I had seen her last month because of anal stricture which was initially noted by GI on colonoscopy. I had done an exam under anesthesia last December 26, and she was noted to have a very tight stricture in the anal rectal region. This was circumferential. Biopsies of this were done showed only chronic inflammatory changes. She has not returned in the office for follow-up since then. She does states she has noticed some small amounts of blood on wiping bowel movements. However, this morning, she says this bleeding was noted to be much more in quantity. According to the family, there was note of says large amounts of blood seen on the toilet as well as on the bed. She was brought to the emergency room immediately and she continued to pass large amounts of bright red blood. She apparently had several of the sheets already here in the emergency room. Hemoglobin was 11 but she continued to have large amounts of bright blood. Transfusion was therefore ordered. She had remained stable hemodynamically. Review of Systems Constitutional: Constitutional: Denies chills and Denies fever(s) Cardiovascular: Cardiovascular: Denies chest pain at rest Respiratory: Respiratory: Denies cough Gastrointestinal: Gastrointestinal: Reports hematochezia Genitourinary: Genitourinary: Denies difficulty voiding PMFSH Past Medical History Medical History Asthma Constipation Diabetes mellitus GERD (gastroesophageal reflux disease) HTN (hypertension) On beta ina at home Rectal stricture Family History Family History Father No problems noted. Mother Family history of high blood pressure Surgical History Surgical History History of colonoscopy Hx laparoscopic cholecystectomy Hx of excision of mass Hx of tubal ligation Social History Social History Household Members: None Alcohol intake: unknown Smoking Status: Unknown if ever smoked Use of substances other than those prescribed or required for medical reasons: Unknown Advance Directives: No Advance Directives Information Provided: No Current occupational status: disabled Meds Allergies Allergy/AdvReac Type Severity Reaction Status Date / Time avocado Allergy Mild Nausea Verified 01/13/21 13:17 Penicillins [PCN] Allergy Mild RASH Verified 01/13/21 13:17 prednisone Allergy Unknown Unknown Verified 01/13/21 13:17 Home Medications Medication Instructions Recorded Confirmed Last Taken Type hydrochlorothiazide 25 mg tablet 25 mg PO DAILY 09/11/20 01/19/21 Unknown History lisinopril 40 mg tablet 40 mg PO DAILY 09/11/20 01/19/21 Unknown History metformin 500 mg tablet 500 mg PO BIDWM 09/11/20 01/19/21 Unknown History metoprolol succinate 50 mg 50 mg PO DAILY 09/11/20 01/19/21 Unknown History tablet,extended release 24 hr aspirin 81 mg tablet,delayed 81 mg PO DAILY 12/08/20 01/19/21 Unknown History release acetaminophen [Pain Relief Extra 1 tab PO Q8H PRN 12/19/20 01/19/21 Unknown History Strength] albuterol sulfate [ProAir HFA] 2 puff PO Q4-6H PRN 12/19/20 01/19/21 Unknown History amlodipine 1 tab PO DAILY 12/19/20 01/19/21 Unknown History latanoprost 1 drp OPHTHALMIC (EYE) BEDTIME 12/19/20 01/19/21 Unknown History multivitamin [Daily-Tania] 1 tab PO DAILY 12/19/20 01/19/21 Unknown History polyvinyl alcohol [Artificial 1 drp OPHTHALMIC (EYE) QID 12/19/20 01/19/21 Unknown History Tears (polyvin alc)] citalopram 1 tab PO DAILY 01/19/21 01/19/21 Unknown History glipizide 1 tab PO QAM 01/19/21 01/19/21 Unknown History Physical Exam Vital Signs: Vital Signs: Last Vital Signs Temp 97.9 F 01/19/21 16:38 Pulse 58 01/19/21 17:03 Resp 18 01/19/21 17:03 BP 145/71 H 01/19/21 17:03 Pulse Ox 100 01/19/21 17:03 Body Mass Index 26.2 Const: Other: Appears anxious General: no acute distress Resp: Effort & Inspection: normal respiratory effort Cardio: Rhythm: regular rhythm GI: Other: Rectal exam - passing bright blood steadily, unable to do a digital exam because of tenderness and pain Palpation (GI): Soft to palpation and nontender Results Labs Result diagrams: 01/19/21 15:51 01/19/21 15:51 Labs: Abnormal lab results 01/19/21 01/19/21 01/19/21 Range/Units 13:44 13:44 15:51 RBC 3.85 L 3.91 L (4.20-5.50) X10*6/uL Hgb 10.5 L 11.0 L (12.0-16.0) g/dl Hct 33.4 L 33.9 L (37-47) % Neut % (Auto) 44.6 L (45-73) % Lymph % (Auto) 40.3 H 44.5 H (20-40) % Anion Gap 10 L (12-20) BUN 20 H (9-16) mg/dL Random Glucose 155 H (60-115) mg/dL Crossmatch 01/19/21 01/19/21 Range/Units 15:51 16:03 RBC (4.20-5.50) X10*6/uL Hgb (12.0-16.0) g/dl Hct (37-47) % Neut % (Auto) (45-73) % Lymph % (Auto) (20-40) % Anion Gap (12-20) BUN 20 H (9-16) mg/dL Random Glucose 131 H (60-115) mg/dL Crossmatch See Detail Short CBC 01/19/21 01/19/21 Range/Units 13:44 15:51 WBC 6.3 7.1 (4.8-10.8) X10*3/uL Hgb 10.5 L 11.0 L (12.0-16.0) g/dl Hct 33.4 L 33.9 L (37-47) % Plt Count 228 225 (160-400) X10*3/uL BMP 01/19/21 01/19/21 13:44 15:51 Sodium 140 141 Potassium 3.8 3.6 Chloride 107 107 Carbon Dioxide 27 25 BUN 20 H 20 H Creatinine 1.03 1.03 Calcium 8.8 9.3 Liver Function 01/19/21 Range/Units 15:51 Total Bilirubin 0.6 (0.0-1.0) mg/dL AST 16 (5-31) U/L ALT 16 (0-31) U/L Alkaline Phosphatase 65 D (39-117) U/L Albumin 4.0 (3.5-5.0) g/dL All other labs normal. Assessment and Plan (1) Acute GI hemorrhage: Status: Inactive She continues to pass blood here in the emergency room. This seems to actually when pressure is applied with bulky gauze on the anal area. She does have the stricture in the anal rectal area and biopsies of this had shown inflammatory changes. She did have massive bleeding noted here in the emergency room so we had d iscussed going to localize this with angiogram. This had been discussed by the emergency room staff with the radiologist. After discussions with services involved, it was deemed that would be best to transfer the patient for angiogram in a tertiary hospital. I agreed with this plan. I explained the above to the family was at bedside. The patient remained hemodynamically stable here in the emergency room during the examination.
--- NOTE | 2021-01-19 17:23 | PC.NURSE ---
life flight here to take pt
--- NOTE | 2021-01-19 17:24 | PC.NURSE ---
estimated blood loss of around 3 units
== END 2021-01-19 17:33 | disposition short-term general hospital (02) ==
PROVIDERS: Nurse Practitioner Primary Care; Emergency Provider Emergency Medicine
DX: K92.2 Gastrointestinal hemorrhage, unspecified (principal); K59.00 Constipation, unspecified; F41.9 Anxiety disorder, unspecified; Z20.822 Contact with and (suspected) exposure to COVID-19; E11.9 Type 2 diabetes mellitus without complications; K21.9 Gastro-esophageal reflux disease without esophagitis; I10 Essential (primary) hypertension; Z79.84 Long term (current) use of oral hypoglycemic drugs; Z79.82 Long term (current) use of aspirin; Z79.899 Other long term (current) drug therapy
CPT/HCPCS: 36415; 36430; 80048; 80053; 85025; 85610; 85730; 86850; 86900; 86920; 86923; 87635; 96361; 96374; 99285; 99291; J2060; P9016

== ENCOUNTER → 2021-02-04 09:54 | Outpatient (BNV) | payer MEDICAID, OTHER, SELFPAY | PROVIDERS: PCP Family Medicine; Referring Provider Family Medicine; Visit Provider Internal Medicine Medical Oncology | DX: C21.0 Malignant neoplasm of anus, unspecified (principal); D50.9 Iron deficiency anemia, unspecified | CPT/HCPCS: 99204; 99213; 99214 ==

== ENCOUNTER 2021-02-19 10:51 | Outpatient (REF) | payer MEDICAID, SELFPAY ==
[2021-02-25 00:53] LABS: HPV mRNA E6/E7 rflx Not Detected (Not Detected)
== END 2021-02-19 10:52 | disposition home or self-care (01) ==
LOC: HO.LAB 10:51
PROVIDERS: Visit Provider Obstetrics & Gynecology
DX: Z01.419 Encounter for gynecological examination (general) (routine) without abnormal findings (principal); Z11.51 Encounter for screening for human papillomavirus (HPV)
CPT/HCPCS: 87624; 88142

== ENCOUNTER 2021-02-23 17:36 | Emergency (ER) | payer MEDICAID, SELFPAY ==
--- NOTE | ~2021-02-23 | CT_ITS ---
EXAMINATION: CT ABDOMEN AND PELVIS WITHOUT CONTRAST CLINICAL INFORMATION: Abdominal pain. Constipation. History of rectal cancer. COMPARISON: None TECHNIQUE: Multidetector volumetric imaging was performed from the superior aspect of the liver through the pubic symphysis. Sagittal and coronal reformatted images were obtained on the technologist's workstation. This CT examination was performed using dose optimization techniques as appropriate, variously including the following: *Automated exposure control *Adjustment of mA and/or kV according to patient size (this includes techniques or standardized protocols for targeted exams where dose is matched to indication/reason for exam; i.e. extremities or head) *Use of iterative reconstruction technique DLP: 649 mGy-cm FINDINGS: LUNG BASES: The visualized lung bases are unremarkable. LIVER, GALLBLADDER, AND BILIARY TREE: The liver is normal in size, shape, and attenuation. No focal hepatic lesion or biliary ductal dilatation is present. The gallbladder has been removed. PANCREAS: Unremarkable. SPLEEN: Unremarkable. ADRENAL GLANDS: There is a 1 x 1.5 cm low-attenuation left adrenal nodule. Hounsfield units measure -24 suggestive of a benign lipid rich adenoma. The right adrenal gland is normal. KIDNEYS AND URETERS: The kidneys are normal in size, shape, and attenuation. No hydronephrosis, hydroureter, or calculi seen. No perinephric stranding. BLADDER: Unremarkable. GASTROINTESTINAL TRACT: There is a large amount of stool seen in the colon suggestive of constipation. The colon is dilated down to the rectum. There is a large rectal mass. There may be distal large bowel obstruction due to the rectal mass. There is diverticulosis of the colon. No evidence of diverticulitis is seen. The appendix is normal. The stomach is normal. There is a small amount of fluid seen in the left lower quadrant and in the presacral space. ABDOMINAL WALL: No significant hernia is appreciated. LYMPH NODES: There are no enlarged lymph nodes. VASCULAR: Unremarkable. PELVIC VISCERA: Unremarkable. OSSEOUS STRUCTURES: There are degenerative changes of the spine. CT/CT abdomen pelvis wo con IMPRESSION: Severe constipation. The colon is dilated to the rectum and there may be secondary distal large bowel obstruction. Diverticulosis of the colon. No evidence of diverticulitis. Small low-attenuation left adrenal lesion probably representing a lipid rich adenoma.
[2021-02-23 19:49] VITALS: BP 185/65; PULSE 58; RESP 22; TEMP 36.4; O2SAT 100; BMI 27.7
[2021-02-23 20:05] LABS: Glucose Urine UA NEG (NEG); Leukocyte Esterase Urine NEG (NEG); Nitrite Urine NEG (NEG); Specific Gravity - Urine 1.025 (1.005-1.025); Urine Blood TRACE (NEG); Urine Ketones 15 MG/DL (NEG); Urine Protein TRACE MG/DL (NEG-TRACE)
[2021-02-23 20:07] LABS: Appearance Urine CLEAR; Color Urine YELLOW
[2021-02-23 20:34] LABS: RBC Urine 0-2 /HPF (0); WBC Urine 0-2 /HPF (0-4)
[2021-02-23 20:35] LABS: Squamous Epithelial Cell Urine TRACE /LPF
--- NOTE | 2021-02-23 20:38 | ED.ABDPAIN ---
HPI - Abdominal Pain General Chief Complaint: Abdominal Pain Stated Complaint: constipation Time Seen by Provider: 02/23/21 21:19 Source: patient and family Mode of arrival: ambulatory Limitations: language barrier History of Present Illness HPI narrative: 65-year-old female with past medical history of hypertension, hyperlipidemia, diabetes, recent diagnosis of anal cancer presents with several days of abdominal pain, constipation, and poor p.o. intake. Patient's family has been giving her MiraLax, Mag citrate, milk of magnesia, Colace, senna with poor effect. Patient is in 10/10 pain, and states that she cannot tolerate the pain even with prescribed morphine. MD elicited complaint: abdominal pain Pertinent past history: other (Anal carcinoma) Onset (ago): week(s) Pain Consistency: constant Location: diffuse Severity: severe Pain scale (0-10): 10 Quality: cramping, aching and fullness Exacerbating factors: movement Relieving factors: nothing Associated symptoms: nausea, constipation and anorexia Treatments prior to arrival: prescription analgesics Related Data Home Medications Medication Instructions Recorded Confirmed lisinopril 40 mg tablet 40 mg PO DAILY 09/11/20 02/04/21 metoprolol succinate 50 mg 50 mg PO DAILY 09/11/20 02/04/21 tablet,extended release 24 hr aspirin 81 mg tablet,delayed 81 mg PO DAILY 12/08/20 02/04/21 release acetaminophen [Pain Relief Extra 1 tab PO Q8H PRN 12/19/20 02/04/21 Strength] albuterol sulfate [ProAir HFA] 2 puff PO Q4-6H PRN 12/19/20 02/04/21 latanoprost 1 drp OPHTHALMIC (EYE) BEDTIME 12/19/20 02/04/21 multivitamin [Daily-Tania] 1 tab PO DAILY 12/19/20 02/04/21 polyvinyl alcohol [Artificial 1 drp OPHTHALMIC (EYE) QID 12/19/20 02/04/21 Tears (polyvin alc)] citalopram 1 tab PO DAILY 01/19/21 02/04/21 glipizide 1 tab PO QAM 01/19/21 02/04/21 pantoprazole 1 tab PO BID 02/04/21 02/04/21 oxycodone 1 tab PO Q8H PRN 02/11/21 02/11/21 Previous Rx's Medication Instructions Recorded polyethylene glycol 3350 17 17 g PO ONCE #510 g 09/11/20 gram/dose oral powder morphine [MS Contin] 30 mg PO Q12H #60 tab 02/04/21 sennosides-docusate sodium 2 tab-cap PO BID #60 tab 02/17/21 [Senna-S] ondansetron HCl [Zofran] 8 mg PO Q8H PRN #50 tab 02/19/21 Allergies Allergy/AdvReac Type Severity Reaction Status Date / Time avocado Allergy Mild Nausea Verified 02/23/21 19:47 Penicillins [PCN] Allergy Mild RASH Verified 02/23/21 19:47 prednisone Allergy Unknown Unknown Verified 02/23/21 19:47 Review of Systems Review of Systems Constitutional: No Weight loss, No Fever, No Chills, No Night Sweats, No Fatigue, No Malaise ENT/Mouth: No Hearing loss, No Ear Pain, No Nasal Congestion, No Sinus Pain, No Hoarseness, No sore throat, No Rhinorrhea, No Swallowing Difficulty Eyes: No Eye Pain, No Swelling, No Redness, No Foreign Body, No Discharge, No Vision Changes Cardiovascular: No Chest Pain, No SOB, No Dyspnea on Exertion, No Orthopnea, No Edema, No Palpitations Respiratory: No Cough, No Sputum, No Wheezing, No Smoke Exposure, No Dyspnea Gastrointestinal: Positive Nausea, no Vomiting, no Diarrhea, positive abdominal Pain, No Hematochezia, No Melena Genitourinary: no irregular bleeding, No Dysuria, No Urinary Frequency, No Hematuria, No Urinary Incontinence, No Urgency, No Flank Pain, No Urinary Flow Changes, No Hesitancy Musculoskeletal: No joint pain, No Myalgias, No Joint Swelling Skin: No Skin Lesions, No rash Neuro: No Weakness, No Numbness, No Paresthesias, No Loss of Consciousness, No Dizziness, No Headache Psych: No Anxiety/Panic, No Depression, No SI/HI/AH/VH, No Social Issues Heme/Lymph: No Bruising, No Bleeding,No Lymphadenopathy Endocrine: No Polyuria, No Polydipsia, No Temperature Intolerance Yes all other systems are reviewed and are negative Physical Exam Vital Signs: Vital Signs: Last Vital Signs Temp 98.0 F 02/23/21 23:58 Pulse 63 02/23/21 23:58 Resp 16 02/23/21 23:58 BP 157/64 H 02/23/21 23:58 Pulse Ox 95 02/23/21 23:58 Body Mass Index 27.7 Appearance: Alert. Oriented X3. Severe distress. Head: Normal external exam. Normocephalic. Atraumatic. No Batista signs noted. No raccoon eyes noted Eyes: PERRLA. EOMI. Conjunctiva and sclera normal. Eyelids normal. ENT: TM's Normal. Pharynx normal. Uvula midline. Dry mucous membranes. No trismus noted. No drooling noted. No muffled voice noted. Neck: Normal inspection. Neck supple. No adenopathy. CVS: Normal heart rate and rhythm. Heart sound normal. No murmurs noted. Pulses equal to all extremities. Respiratory: No respiratory distress. Painless inspiration. Breath sounds normal. No wheezes/rales/rhonchi noted. Chest nontender. No accessory muscle usage noted or decreased air movement noted. Abdomen: distended, diffusely tender. Bowel sounds diminished in all 4 quadrants. Back: No CVA tenderness. Full range of motion noted. Skin: Skin warm and dry. Pale skin color. Normal skin turgor. No rashes/lesions/lacerations noted. Extremities: No lower extremity edema. Extremities exhibit normal range of motion. Extremities nontender. Neuro: cranial nerves 2-12 intact, no focal neural deficits, strength 5/5 to all extremities, No motor deficit. No sensory deficit. Course Course Course Narrative: 65-year-old female with past medical history of hypertension, hyperlipidemia, diabetes, recent diagnosis of anal carcinoma presents with constipation, abdominal pain, and anorexia. Pain has not been relieved with her doses of morphine and family has been giving her MiraLax, Colace, senna, Mag citrate, and milk of magnesia with poor effect. This is highly suspicious for obstruction, patient will remain NPO, last meal was a few sips and a bite of food earlier this morning. Patient was evaluated here on 01/19/2021 and was life flighted to [facility] for rectal bleeding. Will give 6 mg of morphine for pain management, and CT scan of abdomen and pelvis. 1 L of fluid of normal saline. Pain management ineffective, will give Dilaudid [address] scan is positive for large rectal mass, based on the CT scan it would be unsafe to try to disimpact or give any medications per rectum. Dr. Bustamante also visualized the CT scan and agrees with this plan. Discussion with family regarding plan of care, will call out to surgery and hospitalist. 11:07 p.m. discussion with surgery on-call Dr. Huertas, we were unable to complete the procedure required at this facility. Discussion with hospitalist at 11:12 p.m. hospitalist cannot accept this patient as we are unable to appropriately care for this patient and provide surgical intervention required. Call out to [facility], 11:25 p.m. plan of care is to admit to [facility] Emergency Department. Consultations Consultation #1: Patricio Time: 23:07 Consultation #2: Deanna Time: 23:12 Consultation #3: [facility] Time: 23:25 MDM - Abdominal Pain Differential Diagnosis Differential diagnosis: Likely abdominal pain, acute appendicitis, bowel perforation, constipation and small bowel obstruction Medical Records Attestation: I reviewed the patient's medical records. Lab Data Attestation: I reviewed the patient's lab results. Result diagrams: 02/23/21 22:06 02/23/21 20:55 Labs: Lab Results 02/23/21 02/23/21 02/23/21 Range/Units 19:56 20:55 20:55 WBC (4.8-10.8) X10*3/uL RBC (4.20-5.50) X10*6/uL Hgb (12.0-16.0) g/dl Hct (37-47) % MCV (80-98) fL MCH (27.0-33.0) pg MCHC (31.0-35.0) g/dl RDW (11.0-16.0) % Plt Count (160-400) X10*3/uL MPV (9.4-12.3) fL Immature Gran % (Auto) (0.0-0.4) % Neut % (Auto) (45-73) % Lymph % (Auto) (20-40) % [place] % (Auto) (2-11) % Eos % (Auto) (0-4) % Baso % (Auto) (0-2) % Lymph # (Auto) (1.2-4.9) X10*3/uL [place] # (Auto) (0.1-1.2) X10*3/uL Eos # (Auto) (0.0-0.4) X10*3/uL Baso # (Auto) (0.0-0.2) X10*3/uL Abs Immat Gran (auto) (0.00-0.03) X10*3/uL Absolute Neuts (auto) (2.0-8.3) X10*3/uL Absolute Nucleated RBC (0.0-0.012) X10*3/uL Nucleated RBC % (auto) (0.0-0.2) /100WBC PT 13.5 H (10.8-13.0) SEC INR 1.1 (0.9-1.1) APTT 21.8 L D (24.1-38.0) SEC Sodium 137 (135-145) mmol/L Potassium 4.2 (3.3-5.1) mmol/L Chloride 98 (96-108) mmol/L Carbon Dioxide 27 (22-29) mmol/L Anion Gap 16 (12-20) BUN 24 H (9-16) mg/dL Creatinine 1.04 (0.5-1.4) mg/dL Estim Creat Clear Calc 45.7 Estimated GFR 53 POC Glucose (60-115) mg/dL Random Glucose 132 H (60-115) mg/dL Calcium 9.0 (8.4-10.2) mg/dL Total Bilirubin 0.3 (0.0-1.0) mg/dL Direct Bilirubin < 0.2 (0.0-0.5) mg/dL AST 23 D (5-31) U/L ALT 15 (0-31) U/L Alkaline Phosphatase 79 (39-117) U/L Troponin I High Sens (<3.5-17.0) ng/L Total Protein 6.5 (6.5-8.0) g/dL Albumin 3.6 (3.5-5.0) g/dL Lipase 13 (8-78) U/L Urine Color YELLOW Urine Appearance CLEAR Urine pH 6.0 (5.0-8.0) Ur Specific [place] 1.025 (1.005-1.025) Urine Protein TRACE (NEG-TRACE) MG/DL Urine Glucose (UA) NEG (NEG) MG/DL Urine Ketones 15 (NEG) MG/DL Urine Blood TRACE (NEG) Urine Nitrite NEG (NEG) Ur Leukocyte Esterase NEG (NEG) Urine RBC 0-2 (0) /HPF Urine WBC 0-2 (0-4) /HPF Ur Squamous Epith Cells TRACE /LPF Urine Bacteria NONE /LPF 02/23/21 02/23/21 02/23/21 Range/Units 20:55 22:03 22:06 WBC 9.2 (4.8-10.8) X10*3/uL RBC 3.77 L (4.20-5.50) X10*6/uL Hgb 10.5 L (12.0-16.0) g/dl Hct 32.3 L (37-47) % MCV 85.7 (80-98) fL MCH 27.9 (27.0-33.0) pg MCHC 32.5 (31.0-35.0) g/dl RDW 13.8 (11.0-16.0) % Plt Count 261 D (160-400) X10*3/uL MPV 9.3 L (9.4-12.3) fL Immature Gran % (Auto) 0.5 H (0.0-0.4) % Neut % (Auto) 67.9 (45-73) % Lymph % (Auto) 20.7 (20-40) % [place] % (Auto) 10.5 (2-11) % Eos % (Auto) 0.3 (0-4) % Baso % (Auto) 0.1 (0-2) % Lymph # (Auto) 1.9 (1.2-4.9) X10*3/uL [place] # (Auto) 1.0 (0.1-1.2) X10*3/uL Eos # (Auto) 0.0 (0.0-0.4) X10*3/uL Baso # (Auto) 0.0 (0.0-0.2) X10*3/uL Abs Immat Gran (auto) 0.05 H (0.00-0.03) X10*3/uL Absolute Neuts (auto) 6.3 (2.0-8.3) X10*3/uL Absolute Nucleated RBC 0.000 (0.0-0.012) X10*3/uL Nucleated RBC % (auto) 0.0 (0.0-0.2) /100WBC PT (10.8-13.0) SEC INR (0.9-1.1) APTT (24.1-38.0) SEC Sodium (135-145) mmol/L Potassium (3.3-5.1) mmol/L Chloride (96-108) mmol/L Carbon Dioxide (22-29) mmol/L Anion Gap (12-20) BUN (9-16) mg/dL Creatinine (0.5-1.4) mg/dL Estim Creat Clear Calc Estimated GFR POC Glucose 138 H (60-115) mg/dL Random Glucose (60-115) mg/dL Calcium (8.4-10.2) mg/dL Total Bilirubin (0.0-1.0) mg/dL Direct Bilirubin (0.0-0.5) mg/dL AST (5-31) U/L ALT (0-31) U/L Alkaline Phosphatase (39-117) U/L Troponin I High Sens < 3.5 (<3.5-17.0) ng/L Total Protein (6.5-8.0) g/dL Albumin (3.5-5.0) g/dL Lipase (8-78) U/L Urine Color Urine Appearance Urine pH (5.0-8.0) Ur Specific Phelan (1.005-1.025) Urine Protein (NEG-TRACE) MG/DL Urine Glucose (UA) (NEG) MG/DL Urine Ketones (NEG) MG/DL Urine Blood (NEG) Urine Nitrite (NEG) Ur Leukocyte Esterase (NEG) Urine RBC (0) /HPF Urine WBC (0-4) /HPF Ur Squamous Epith Cells /LPF Urine Bacteria /LPF Imaging Data CT scan - abdomen: Attestation: I personally reviewed and interpreted this imaging study as follows: Radiologist's impression: EXAMINATION: CT ABDOMEN AND PELVIS WITHOUT CONTRAST CLINICAL INFORMATION: Abdominal pain. Constipation. History of rectal cancer. COMPARISON: None TECHNIQUE: Multidetector volumetric imaging was performed from the superior aspect of the liver through the pubic symphysis. Sagittal and coronal reformatted images were obtained on the technologist's workstation. This CT examination was performed using dose optimization techniques as appropriate, variously including the following: *Automated exposure control *Adjustment of mA and/or kV according to patient size (this includes techniques or standardized protocols for targeted exams where dose is matched to indication/reason for exam; i.e. extremities or head) *Use of iterative reconstruction technique DLP: 649 mGy-cm FINDINGS: LUNG BASES: The visualized lung bases are unremarkable. LIVER, GALLBLADDER, AND BILIARY TREE: The liver is normal in size, shape, and attenuation. No focal hepatic lesion or biliary ductal dilatation is present. The gallbladder has been removed. PANCREAS: Unremarkable. SPLEEN: Unremarkable. ADRENAL GLANDS: There is a 1 x 1.5 cm low-attenuation left adrenal nodule. Hounsfield units measure -24 suggestive of a benign lipid rich adenoma. The right adrenal gland is normal. KIDNEYS AND URETERS: The kidneys are normal in size, shape, and attenuation. No hydronephrosis, hydroureter, or calculi seen. No perinephric stranding. BLADDER: Unremarkable. GASTROINTESTINAL TRACT: There is a large amount of stool seen in the colon suggestive of constipation. The colon is dilated down to the rectum. There is a large rectal mass. There may be distal large bowel obstruction due to the rectal mass. There is diverticulosis of the colon. No evidence of diverticulitis is seen. The appendix is normal. The stomach is normal. There is a small amount of fluid seen in the left lower quadrant and in the presacral space. ABDOMINAL WALL: No significant hernia is appreciated. LYMPH NODES: There are no enlarged lymph nodes. VASCULAR: Unremarkable. PELVIC VISCERA: Unremarkable. OSSEOUS STRUCTURES: There are degenerative changes of the spine. CT/CT abdomen pelvis wo con IMPRESSION: Severe constipation. The colon is dilated to the rectum and there may be secondary distal large bowel obstruction. Diverticulosis of the colon. No evidence of diverticulitis. Small low-attenuation left adrenal lesion probably representing a lipid rich adenoma. Critical Care Time Critical Care Time Critical Care Time: Yes Total Critical Care Time: 65 Attestation: I have personally provided critical care time exclusive of time spent on separately billable procedures. Time includes review of laboratory data, radiology results, discussion with consultants, and monitoring for potential decompensation. Interventions were performed as documented. Discharge Plan Discharge Clinical Impression: Rectal mass, Rectal cancer Constipation Qualifiers: Constipation type: other constipation type Qualified Code(s): K59.09 - Other constipation Patient Disposition: Xfer Acute Care Hospital Transfer Details: [facility] Prescriptions: No Action citalopram 20 mg tablet 1 tab PO DAILY RF: 0 glipizide 2.5 mg tablet extended release 24hr 1 tab PO QAM RF: 0 multivitamin [Daily-Tania] Tablet 1 tab PO DAILY RF: 0 latanoprost 0.005 % drops 1 drp ophthalmic (eye) BEDTIME RF: 0 polyvinyl alcohol [Artificial Tears (polyvin alc)] 1.4 % drops 1 drp ophthalmic (eye) QID RF: 0 acetaminophen [Pain Relief Extra Strength] 500 mg tablet 1 tab PO Q8H PRN (Reason: Pain) RF: 0 albuterol sulfate [ProAir HFA] 90 mcg/actuation HFA aerosol inhaler 2 puff PO Q4-6H PRN (Reason: Wheezing) RF: 0 pantoprazole 40 mg tablet,delayed release (DR/EC) 1 tab PO BID RF: 0 morphine [MS Contin] 30 mg Tablet Extended Release 30 mg PO Q12H Qty: 60 RF: 0 oxycodone 5 mg tablet 1 tab PO Q8H PRN (Reason: pain) RF: 0 sennosides-docusate sodium [Senna-S] 8.6-50 mg Tablet 2 tab-cap PO BID Qty: 60 RF: 5 ondansetron HCl [Zofran] 4 mg Tablet 8 mg PO Q8H PRN (Reason: Nausea And Vomiting) Qty: 50 RF: 4 metoprolol succinate 50 mg tablet extended release 24 hr 50 mg PO DAILY RF: 0 lisinopril 40 mg tablet 40 mg PO DAILY RF: 0 polyethylene glycol 3350 [Miralax] 17 gram/dose powder 17 g PO ONCE Qty: 510 RF: 0 aspirin 81 mg tablet,delayed release (DR/EC) 81 mg PO DAILY RF: 0 Interventions: Acute Care Transfer Worksheet (ED) Last Done: 02/24/21 00:19 Discharge Date/Time: 02/24/21 00:20 [facility] Past Medical History Attestation statement: The following information was validated with the patient. Source: old records reviewed Medical History Asthma Constipation Diabetes mellitus GERD (gastroesophageal reflux disease) HTN (hypertension) On beta ina at home Rectal cancer Rectal stricture Surgical History History of colonoscopy Hx laparoscopic cholecystectomy Hx of excision of mass Hx of tubal ligation Family History Family History Mother Family history of high blood pressure DVT (deep venous thrombosis) Sister Lupus Father Prostate cancer COPD (chronic obstructive pulmonary disease) Brother Diabetes Social History Social History Household Members: None Alcohol intake: former Smoking Status: Never smoker Use of substances other than those prescribed or required for medical reasons: No Advance Directives: No Advance Directives Information Provided: No Patient : No Current occupational status: disabled
--- NOTE | 2021-02-23 20:46 | ECG_ITS ---
Test Reason : ABD PAIN Blood Pressure : / mmHG Vent. Rate : 060 BPM Atrial Rate : 060 BPM P-R Int : 160 ms QRS Dur : 088 ms QT Int : 490 ms P-R-T Axes : 045 000 035 degrees QTc Int : 490 ms Normal sinus rhythm Prolonged QT Abnormal ECG When compared to the previous EKG of QT has lengthened Referred By: Michelle Zaman Electronically Signed By:CAREY EASTMAN MD
[2021-02-23] MEDS: 0.9 % Sodium Chloride 1,000 ML 999 ML IVCONT (21:09)
[2021-02-23 21:14] LABS: INTERNATIONAL NORM RATIO 1.1 (0.9-1.1); Prothrombin Time 13.5 SEC (10.8-13.0)
[2021-02-23 21:16] LABS: Partial Thromboplastin Time 21.8 SEC (24.1-38.0)
[2021-02-23 21:36] LABS: Troponin-I High Sensitivity < 3.5 ng/L (<3.5-17.0)
[2021-02-23 21:38] LABS: Alanine Aminotransferase 15 U/L (0-31); Albumin Level 3.6 g/dL (3.5-5.0); Alkaline Phosphatase 79 U/L (39-117); Anion Gap 16 (12-20); Aspartate Amino Transferase 23 U/L (5-31); Bilirubin Direct < 0.2 mg/dL (0.0-0.5); Bilirubin Total 0.3 mg/dL (0.0-1.0); Blood Urea Nitrogen 24 mg/dL (9-16); Carbon Dioxide 27 mmol/L (22-29); Chloride 98 mmol/L (96-108); Creatinine Clr Calc Pharmacy 45.7; Estimated Glomerular Filt Rate 53; Glucose Random 132 mg/dL (60-115); Lipase 13 U/L (8-78); Potassium 4.2 mmol/L (3.3-5.1); Sodium 137 mmol/L (135-145); Total Protein 6.5 g/dL (6.5-8.0)
[2021-02-23 22:11] LABS: MANUAL DIFF FLAG NO
[2021-02-23 22:11] LABS: Glucose, Whole Blood 138 mg/dL (60-115)
[2021-02-23 22:12] LABS: Basophils Percent Auto 0.1 % (0-2); Eosinophils Percent Auto 0.3 % (0-4); Hematocrit 32.3 % (37-47); Hemoglobin 10.5 g/dl (12.0-16.0); Imm Gran Abs Auto 0.05 X10*3/uL (0.00-0.03); Imm Gran Pct Auto 0.5 % (0.0-0.4); Lymphocytes Absolute Auto 1.9 X10*3/uL (1.2-4.9); Lymphocytes Percent Auto 20.7 % (20-40); Mean Corpuscular HGB Conc 32.5 g/dl (31.0-35.0); Mean Corpuscular Hemoglobin 27.9 pg (27.0-33.0); Mean Corpuscular Volume 85.7 fL (80-98); Mean Platelet Volume 9.3 fL (9.4-12.3); Monocytes Percent Auto 10.5 % (2-11); Neutrophils Absolute Auto 6.3 X10*3/uL (2.0-8.3); Neutrophils Percent Auto 67.9 % (45-73); Platelet Count 261 X10*3/uL (160-400); Red Blood Count 3.77 X10*6/uL (4.20-5.50); Red Cell Distribution Width 13.8 % (11.0-16.0); White Blood Count 9.2 X10*3/uL (4.8-10.8)
[2021-02-23 22:31] VITALS: BP 154/57; PULSE 59; RESP 16; O2SAT 100
[2021-02-23] MEDS: ondansetron HCL 4 MG/2 ML VIAL IVPUSH (23:04)
[2021-02-23] MEDS: HYDROmorphone HCl 1 MG/ML SYRINGE IVPUSH (23:04)
--- NOTE | 2021-02-23 23:33 | PC.NURSE ---
Nurse to nurse given to Yamel CAMP at [facility].
[2021-02-23] MEDS: HYDROmorphone HCl 2 MG/ML VIAL IVPUSH (23:56)
[2021-02-23 23:58] VITALS: BP 157/64; PULSE 63; RESP 16; TEMP 36.7; O2SAT 95
== END 2021-02-24 00:20 | disposition short-term general hospital (02) ==
PROVIDERS: Nurse Practitioner Family; Emergency Provider Emergency Medicine; PCP Family Medicine
DX: C21.0 Malignant neoplasm of anus, unspecified (principal); K59.00 Constipation, unspecified; R10.9 Unspecified abdominal pain; R63.0 Anorexia; I10 Essential (primary) hypertension; E78.5 Hyperlipidemia, unspecified; E11.9 Type 2 diabetes mellitus without complications; J45.909 Unspecified asthma, uncomplicated; Z79.02 Long term (current) use of antithrombotics/antiplatelets
CPT/HCPCS: 36415; 74176; 80048; 80076; 81001; 82947; 83690; 84484; 85025; 85610; 85730; 93005; 96361; 96374; 96375; 96376; 99285; 99291; J1170; J2270; J2405

== ENCOUNTER 2021-04-03 15:27 | Outpatient (REF) | payer MEDICAID, SELFPAY ==
--- NOTE | ~2021-04-03 | US_ITS ---
EXAMINATION: US VENOUS WITH DOPPLER UPPER EXTREMITY, RIGHT CLINICAL INFORMATION: Swelling, superficial femoral phlebitis COMPARISON: None TECHNIQUE: Ultrasound of the upper extremity is performed using compression sonography and color and pulse Doppler flow with assessment of augmentation of flow. There is also imaging and Doppler assessment of the jugular and subclavian veins. Spectral analysis with color-flow imaging is performed. FINDINGS: Respiratory variation, normal compression, and augmented flow are noted throughout the upper extremity including the axillary, brachial, cubital, and radial and ulnar veins. There is normal flow in the internal jugular and subclavian veins. There is no visible deep or superficial thrombophlebitis. There is superficial thrombophlebitis in cephalic vein extending to the distal forearm US/US venous duplex UE RT IMPRESSION: No DVT above the elbow demonstrated in the right upper extremity. There is superficial thrombophlebitis involving the cephalic vein reportedly at the site of previous IV placement at the level the forearm.
--- NOTE | ~2021-04-03 | US_ITS ---
EXAMINATION: US VENOUS ULTRASOUND WITH DOPPLER LOWER EXTREMITY, BILATERAL CLINICAL INFORMATION: Leg swelling, rule out deep venous thrombosis. COMPARISON: None TECHNIQUE: Ultrasound of the deep veins is performed from the hip to the calf with compression sonography and color and pulse Doppler assessment. Spectral analysis with color-flow imaging is performed. FINDINGS: RIGHT: There is normal venous compression and respiratory variation and augmented flow. The visualized common femoral vein, superficial femoral vein, profunda femoral vein, popliteal vein, and the trifurcation region shows no evidence of deep venous thrombosis. There is no popliteal cyst. The subcutaneous soft tissues are unremarkable. LEFT: There is normal venous compression and respiratory variation and augmented flow. The visualized common femoral vein, superficial femoral vein, profunda femoral vein, popliteal vein, and the trifurcation region shows no evidence of deep venous thrombosis. There is no popliteal cyst. The subcutaneous soft tissues are unremarkable. If the patient's symptoms persist, followup ultrasound in 5 days 7 days might be of value to exclude proximal propagation from a non-visualized calf vein. US/US venous duplex LE BI IMPRESSION: No evidence for deep venous thrombosis in the visualized veins of the bilateral lower extremities.
== END 2021-04-03 15:28 | disposition home or self-care (01) ==
LOC: HO.HMGCX 15:27
PROVIDERS: PCP Family Medicine; Visit Provider Internal Medicine
DX: R60.0 Localized edema (principal); I80.9 Phlebitis and thrombophlebitis of unspecified site
CPT/HCPCS: 93970; 93971

== ENCOUNTER 2021-04-15 09:02 | Outpatient (REF) | payer MEDICAID, SELFPAY ==
[2021-04-15 09:39] LABS: MANUAL DIFF FLAG NO
[2021-04-15 09:53] LABS: Basophils Percent Auto 0.4 % (0-2); Eosinophils Absolute Auto 0.2 X10*3/uL (0.0-0.4); Eosinophils Percent Auto 3.6 % (0-4); Hematocrit 33.7 % (37-47); Hemoglobin 10.3 g/dl (12.0-16.0); Imm Gran Abs Auto 0.01 X10*3/uL (0.00-0.03); Imm Gran Pct Auto 0.2 % (0.0-0.4); Lymphocytes Absolute Auto 2.1 X10*3/uL (1.2-4.9); Lymphocytes Percent Auto 37.5 % (20-40); Mean Corpuscular HGB Conc 30.6 g/dl (31.0-35.0); Mean Corpuscular Hemoglobin 26.5 pg (27.0-33.0); Mean Corpuscular Volume 86.6 fL (80-98); Monocytes Absolute Auto 0.6 X10*3/uL (0.1-1.2); Monocytes Percent Auto 11.5 % (2-11); Neutrophils Absolute Auto 2.6 X10*3/uL (2.0-8.3); Neutrophils Percent Auto 46.8 % (45-73); Platelet Count 238 X10*3/uL (160-400); Red Blood Count 3.89 X10*6/uL (4.20-5.50); Red Cell Distribution Width 14.8 % (11.0-16.0); White Blood Count 5.6 X10*3/uL (4.8-10.8)
[2021-04-15 10:11] LABS: Alanine Aminotransferase 6 U/L (0-31); Albumin Level 3.7 g/dL (3.5-5.0); Alkaline Phosphatase 69 U/L (39-117); Anion Gap 9 (12-20); Aspartate Amino Transferase 13 U/L (5-31); Bilirubin Total 0.5 mg/dL (0.0-1.0); Blood Urea Nitrogen 22 mg/dL (9-16); Calcium 9.3 mg/dL (8.4-10.2); Carbon Dioxide 32 mmol/L (22-29); Chloride 105 mmol/L (96-108); Estimated Glomerular Filt Rate 48; Glucose Random 88 mg/dL (60-115); Sodium 142 mmol/L (135-145); Total Protein 6.3 g/dL (6.5-8.0)
== END 2021-04-15 09:03 | disposition home or self-care (01) ==
LOC: HO.LAB 09:02
PROVIDERS: PCP Family Medicine; Visit Provider Internal Medicine Medical Oncology
DX: C21.0 Malignant neoplasm of anus, unspecified (principal)
CPT/HCPCS: 36415; 80053; 85025

== ENCOUNTER → 2021-05-27 13:02 | Outpatient (BNVA) | payer MEDICAID, SELFPAY | PROVIDERS: PCP Family Medicine; Referring Provider Family Medicine; Visit Provider Surgery | DX: C21.0 Malignant neoplasm of anus, unspecified (principal); Z93.3 Colostomy status | CPT/HCPCS: 99212 ==

== ENCOUNTER 2021-06-22 08:25 | Outpatient (REF) | payer MEDICAID, SELFPAY | END 2021-06-22 08:26 | disposition home or self-care (01) | LOC: HO.MDS 08:25 | PROVIDERS: PCP Family Medicine; Visit Provider Internal Medicine Medical Oncology | DX: D50.9 Iron deficiency anemia, unspecified (principal) | CPT/HCPCS: 96365; 96366; J1200; J1750; Q0163 ==

== ENCOUNTER → 2021-06-25 09:28 | Outpatient (BNVA) | payer MEDICAID, SELFPAY | PROVIDERS: PCP Family Medicine; Referring Provider Family Medicine; Visit Provider Surgery | DX: C21.0 Malignant neoplasm of anus, unspecified (principal); Z93.3 Colostomy status | CPT/HCPCS: 99212 ==

== ENCOUNTER 2021-07-22 12:27 | Outpatient (REF) | payer MEDICAID, SELFPAY ==
[2021-07-22 12:48] LABS: Appearance Urine CLEAR; Color Urine YELLOW; Glucose Urine UA NEG (NEG); Leukocyte Esterase Urine NEG (NEG); Nitrite Urine NEG (NEG); Specific Gravity - Urine 1.025 (1.005-1.025); Urine Blood NEG (NEG); Urine Ketones NEG (NEG); Urine Protein TRACE MG/DL (NEG-TRACE)
== END 2021-07-22 12:28 | disposition home or self-care (01) ==
LOC: HO.HVNA 12:27
PROVIDERS: Visit Provider Internal Medicine
DX: R30.0 Dysuria (principal)
CPT/HCPCS: 81003

== ENCOUNTER → 2021-07-23 09:12 | Outpatient (BNVA) | payer MEDICAID, SELFPAY | PROVIDERS: PCP Family Medicine; Referring Provider Family Medicine; Visit Provider Surgery | DX: C21.0 Malignant neoplasm of anus, unspecified (principal) | CPT/HCPCS: 99212 ==

== ENCOUNTER 2021-08-14 11:53 | Outpatient (REF) | payer MEDICAID, SELFPAY ==
--- NOTE | ~2021-08-14 | PE_ITS ---
EXAMINATION: Fluorine-18 FDG PET/CT Scan CLINICAL INDICATION: Subsequent treatment management. Anal squamous cell carcinoma, restaging. Patient is status post chemotherapy, 2 months ago and radiation therapy 3 months ago. PROCEDURE: 57 minutes following the intravenous administration of 11.0 mCi of fluorine 18 FDG, images from the base of the skull to the mid thighs were obtained using a combined PET/CT scanner with CT scan based attenuation correction. No oral contrast was administered. No intravenous contrast was administered. Transverse, coronal, sagittal, and volume reconstruction projections were obtained. The patient's blood glucose as determined by a finger stick, was 87 mg/dl immediately prior to injection. Total CT exam dose-length product 311.46 mGy-cm * These CT images were obtained using dose optimization techniques as appropriate, variously including the following: Automated exposure control * Adjustment of mA and/or kV according to patient size (this includes techniques or standardized protocols for targeted exams where dose is matched to indication/reason for exam; i.e. extremities or head) * Use of iterative reconstruction technique COMPARISON: The report of a prior PET CT performed at [facility] scan dated 02/10/2021 is available, but the images from that study are not available for review. The diagnostic CT scan of the abdomen and pelvis, dated 02/23/2021, is available for comparison. FINDINGS: (Slice numbers described in this report are numbered superiorly to inferiorly with slice #1 in the head) NECK AND VISUALIZED HEAD: No foci of abnormal FDG activity are noted. The distribution of FDG activity is physiological. There is no cervical lymphadenopathy. THORAX: There are no foci of abnormal FDG activity. No pulmonary nodules are visualized. Minimal by basilar scarring or atelectasis is present with no associated abnormal FDG activity. There is no pleural or pericardial fluid or pneumothorax. There is no mediastinal, supraclavicular, or axillary lymphadenopathy. ABDOMEN AND PELVIS: The FDG avid rectal mass described on the report of the 02/10/[address] scan is not evident on the current study. There is no abnormal FDG activity at any site in the abdomen or pelvis. There is a density in the left paramidline region of the rectum that likely represents a postsurgical clip, and this was not present on the prior 02/23/[address] scan. A rectal mass evident on that study that likely corresponds to the intensely FDG avid lesion described on the 02/10/[address] scan is no longer present. There is a new left lower quadrant colostomy in place with very mild associated FDG activity, likely physiological. There is additional mild FDG activity throughout the gastrointestinal tract without a suspicious focal component and likely physiological. The liver and spleen are unremarkable. The gallbladder has been resected and metallic surgical clips are present in the gallbladder bed. There is a hypodense left adrenal nodule, just barely visualized, measuring approximately 1.1 x 0.6 cm in largest transverse dimension with no associated abnormal FDG activity. This was better delineated on the diagnostic 02/23/2021 CT scan. This was not described on the report of the 02/10/[address] scan. The adrenal glands are otherwise unremarkable. The kidneys and pancreas are unremarkable. There is noc retroperitoneal, mesenteric, pelvic or inguinal lymphadenopathy. Dense calcifications versus metallic surgical clips are present in the uterus, with no associated abnormal FDG activity. These are stable from the 02/23/2021 CT scan. The pelvic organs are otherwise unremarkable. MUSCULOSKELETAL: No foci of abnormal FDG activity are present in the osseous structures. There are degenerative changes in the spine, sacroiliac joints bilaterally, and bilateral hips but no suspicious sclerotic or lytic lesions are visualized. VASCULAR: Scattered vascular calcifications are noted. PET/PET CT fusion skull to thigh IMPRESSION: 1. An FDG avid rectal mass described on the report of the PET CT scan dated 02/10/2021 is no longer present. There are postoperative changes in the pelvis and a left lower quadrant colostomy is now in place. There are no abnormal FDG avid foci at any site. These findings are consistent with a complete metabolic response to therapy. 2. On these nondiagnostic CT images, a stable hypodense left adrenal nodule is just barely visualized, likely unchanged from the diagnostic CT scan of 02/23/2021 and showing no abnormal FDG activity, most consistent with a stable benign lesion. 3. No abnormalities suspicious for metastatic or other malignant lesions are noted.
== END 2021-08-14 11:54 | disposition home or self-care (01) ==
LOC: HO.PET 11:53
PROVIDERS: Visit Provider Internal Medicine Medical Oncology
DX: Z13.89 Encounter for screening for other disorder (principal)

== ENCOUNTER → 2021-10-07 10:38 | Outpatient (BNVA) | payer MEDICAID, SELFPAY | PROVIDERS: PCP Family Medicine; Referring Provider Family Medicine; Visit Provider Surgery | DX: C21.0 Malignant neoplasm of anus, unspecified (principal); Z93.3 Colostomy status | CPT/HCPCS: 99212 ==

== ENCOUNTER 2021-12-15 07:03 | Day surgery (SDC) | payer OTHER, SELFPAY ==
[2021-12-10 09:29] VITALS: BMI 37.5
[2021-12-15 07:44] VITALS: BP 141/58; PULSE 58; RESP 16; TEMP 36.7; O2SAT 98
[2021-12-15] MEDS: Lactated Ringers 1,000 ML 50 ML IVCONT (07:53)
--- NOTE | 2021-12-15 08:02 | MHC.SHP ---
Pre-Procedural Eval Section A Date of Service: 12/15/21 Section B Chief Complaint: Anal squamous cell carcinoma Details of Present Illness: has anal squamous cell carcinoma, had undergone radiation treatment and therapy with capecitabine and mitomycin; here for flexible sigmoidoscopy to evaluate for response to treatment Relevant Family History (Specify if Yes): No Relevant Social History: None Present Medications: see Short Stay Collaborative assessment Medical History: Significant History ( anal squamous cell carcinoma) History of Previous Operations: Relevant previous surgery/procedure and date(s) ( diverting loop colostomy) Allergies: Allergies Allergy/AdvReac Type Severity Reaction Status Date / Time avocado Allergy Mild Nausea Verified 10/07/21 11:06 Penicillins [PCN] Allergy Mild RASH Verified 10/07/21 11:06 prednisone Allergy Unknown Unknown Verified 10/07/21 11:06 Review of Systems Sugical H&P ROS: Negative: Constitution, Cardiovascular, Respiratory, Neurological, Psychiatric, Hem-Onc, Allergic/Immunologic, Gastrointestinal, Genitourinary, Musculoskeletal, Integumentary, Endocrine and Eyes/Ears/Nose/Throat Exam Surgical H&P Exam: Normal: HEENT, Normal: Heart, Normal: Lungs, Normal: Extremities, Normal: Skin and Normal: Neurological and Significant Findings: Abdomen ( has stoma on the abdominal) Plan Diagnosis/Plan: Unchanged I have reviewed the history and physical and performed a pertinent physical examination on my patient. No changes have occurred unless specified.
--- NOTE | 2021-12-15 08:04 | P.CONAN_ITS ---
FORMERLY [facility] Active Problems Active Problems: All Active Problems (Updated 12/10/21 @ 09:29 by Rosa M Nuñez RN) Anal squamous cell carcinoma (Acute) Well woman exam (Acute) Anemia (Acute) Constipation (Acute) Past Medical History Medical History Asthma Constipation COVID-19 vaccine series completed Diabetes mellitus GERD (gastroesophageal reflux disease) HTN (hypertension) On beta ina at home Family History Family History Mother Family history of high blood pressure DVT (deep venous thrombosis) Sister Lupus Father Prostate cancer COPD (chronic obstructive pulmonary disease) Brother Diabetes Surgical History Surgical History History of colonoscopy Hx laparoscopic cholecystectomy Hx of biopsy Hx of excision of mass Hx of tubal ligation S/P colostomy S/P radiation therapy Status post chemotherapy Social History Social History Household Members: None Are you a primary inspector health care facilities to a significant other at home: No Do you presently have visiting nurse or other home services: No Alcohol intake: former Patient Tobacco Use Status: Former Tobacco user Quit Date: 2011 Tobacco use type: Cigarette Use of substances other than those prescribed or required for medical reasons: No Have you been hit, kicked, punched, or otherwise hurt by someone within the past year? If so, by whom?: No Are you DNR?: No Advance Directives: Yes Advance Directives Information Provided: Yes Advance Directives on File: Yes Advance Directives Date on File: 02/04/21 Recently lost weight without trying: No Eating poorly because of decreased appetite: No Nutrition Risks: No Nutritional Risk Current occupational status: disabled Meds Allergies Allergy/AdvReac Type Severity Reaction Status Date / Time avocado Allergy Mild Nausea Verified 10/07/21 11:06 Penicillins [PCN] Allergy Mild RASH Verified 10/07/21 11:06 prednisone Allergy Unknown Unknown Verified 10/07/21 11:06 Home Medications Medication Instructions Recorded Confirmed Last Taken Type metoprolol succinate 50 mg 50 mg PO DAILY 09/11/20 12/10/21 12/15/21 History tablet,extended release 24 hr aspirin 81 mg tablet,delayed 81 mg PO DAILY 12/08/20 12/10/21 Unknown History release acetaminophen 500 mg tablet (Pain 1 tab PO Q8H PRN 12/19/20 12/10/21 Unknown H istory Relief Extra Strength) albuterol sulfate 90 mcg/actuation 2 puff PO Q4-6H PRN 12/19/20 12/10/21 Unknown History aerosol inhaler (ProAir HFA) latanoprost 0.005 % eye drops 1 drp OPHTHALMIC (EYE) BEDTIME 12/19/20 12/10/21 Unknown History multivitamin (Daily-Tania) 1 tab PO DAILY 12/19/20 12/10/21 Unknown History polyvinyl alcohol 1.4 % eye drops 1 drp OPHTHALMIC (EYE) QID 12/19/20 12/10/21 Unknown History (Artificial Tears (polyvinyl alcohol)) citalopram 20 mg tablet 1 tab PO DAILY 01/19/21 12/10/21 12/15/21 History glipizide 2.5 mg tablet, extended 1 tab PO QAM 01/19/21 12/10/21 Unknown History release 24 hr pantoprazole 40 mg tablet,delayed 1 tab PO BID 02/04/21 12/10/21 12/15/21 History release gabapentin 300 mg tablet 300 mg PO BEDTIME 04/02/21 12/10/21 Unknown History Exam Exam Date and Time: December 15, [id number] Height,Weight and Vital Signs: Height 4 ft 5 in Weight 68.039 kg Last Vital Signs Temp 98.0 F 12/15/21 07:44 Pulse 58 12/15/21 07:44 Resp 16 12/15/21 07:44 BP 141/58 H 12/15/21 07:44 Pulse Ox 98 12/15/21 07:44
[2021-12-15 08:10] LABS: Glucose, Whole Blood 111 mg/dL (60-115)
--- NOTE | 2021-12-15 08:30 | W.PM.OPN ---
Operative Note Operative Note Date of Service: 12/15/21 Narrative: Preop diagnosis: Squamous cell anal carcinoma, status post chemotherapy and radiation Postop diagnosis: Squamous cell anal carcinoma, status post chemotherapy and radiation, with persistent stricture Procedure: Flexible sigmoidoscopy Surgeon: Jesus Del Angel MD The patient is a 66 year old female who had an anal squamous cell carcinoma and had undergone chemotherapy and radiation last year. She is here to evaluate response to treatment. She has a colostomy in place becuse of her bleeding from the lesion. She understood the technique of flexible sigmoidoscopy. She was aware of the risks, benefits, and alternatives. She was brought to the operating room placed in left lateral decubitus position under monitored anesthesia care. A surgical time-out was done. I then proceeded to do a digital rectal exam. Immediately I noteda stricture felt in the anal canal at about 3.0 cm from the verge. I therefore had to gently inserted the flexible sigmoidoscope. Again, immediately, I had noticed this stricture with a very small lumen. this was right at the anal canal at the approximate level of the dentate line, although the anatomic landmarks could not be identified. The surface of the stricture was irregular, and seemed to bleed easily. In view of this as well as her recent radiation, I decided not to do any biopsies of this because of the risk of persistent bleeding. The lumen at the stricture was very tight and did not allow the scope to pass through at all. I therefore withdraw the scope findings are suggestive of persistent carcinoma with poor treatment response. I will discuss this with the family in the office and review options.
[2021-12-15 08:33] VITALS: BP 124/57; PULSE 64; RESP 16; TEMP 36.3; O2SAT 100
[2021-12-15 08:48] VITALS: BP 128/49; PULSE 63; RESP 16; TEMP 36.3; O2SAT 99
== END 2021-12-15 09:23 | disposition home or self-care (01) ==
PROVIDERS: Visit Provider Surgery
PROC: 0DJD8ZZ Inspection of Lower Intestinal Tract, Via Natural or Artificial Opening Endoscopic (ICD-10-PCS; CPT 45330; principal; 2021-12-15 08:30)
DX: C21.1 Malignant neoplasm of anal canal (principal); K62.4 Stenosis of anus and rectum; Z92.3 Personal history of irradiation; Z92.21 Personal history of antineoplastic chemotherapy; Z93.3 Colostomy status; K59.00 Constipation, unspecified; K21.9 Gastro-esophageal reflux disease without esophagitis; J45.909 Unspecified asthma, uncomplicated; I10 Essential (primary) hypertension; E11.9 Type 2 diabetes mellitus without complications; Z79.84 Long term (current) use of oral hypoglycemic drugs; Z79.82 Long term (current) use of aspirin; Z79.899 Other long term (current) drug therapy; Z88.0 Allergy status to penicillin; Z88.8 Allergy status to other drugs, medicaments and biological substances; Z90.49 Acquired absence of other specified parts of digestive tract; Z87.891 Personal history of nicotine dependence
CPT/HCPCS: 45330; 82947

== ENCOUNTER → 2021-12-28 12:51 | Outpatient (BNVA) | payer OTHER, SELFPAY | PROVIDERS: PCP Family Medicine; Referring Provider Nurse Practitioner Primary Care; Visit Provider Surgery | DX: C21.0 Malignant neoplasm of anus, unspecified (principal) | CPT/HCPCS: 99212 ==

== ENCOUNTER → 2022-02-24 09:48 | Outpatient (BNVA) | payer OTHER, SELFPAY | PROVIDERS: Visit Provider Obstetrics & Gynecology | DX: Z01.419 Encounter for gynecological examination (general) (routine) without abnormal findings (principal) ==

== ENCOUNTER 2022-03-18 12:02 | Emergency (ER) | payer OTHER, SELFPAY ==
--- NOTE | ~2022-03-18 | XR_ITS ---
EXAMINATION: XR CHEST CLINICAL INFORMATION: Chest pain COMPARISON: April 07, 2019 TECHNIQUE: AP portable view of the chest was obtained. FINDINGS: No significant abnormality is noted involving the heart, lungs, mediastinum, bony thorax or soft tissues. XR/XR chest 1V IMPRESSION: No acute disease.
--- NOTE | 2022-03-18 12:08 | ECG_ITS ---
Test Reason : chest pain Blood Pressure : / mmHG Vent. Rate : 058 BPM Atrial Rate : 058 BPM P-R Int : 192 ms QRS Dur : 094 ms QT Int : 456 ms P-R-T Axes : 057 004 045 degrees QTc Int : 447 ms Sinus bradycardia Otherwise normal ECG When compared with ECG of 23-FEB-2021 22:01, No significant change was found Referred By: Eva Olmos Electronically Signed By:GVAIN RUDD
--- NOTE | 2022-03-18 12:11 | ED.GENADULT ---
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 She has chronic abdominal pain in the left lower quadrant where her ostomy bag is and has a Fentanyl patch for this. She reports 2 days ago she started with left upper back pain which is not uncommon for her. Yesterday the pain started to radiate under her left axilla and across her left chest. She has never had pain like this before. She describes it as sharp and heavy. It is 9/10 and constant. She is not short of breath due to the pain but she intermittently gets short of breath with exertion and this is her baseline. She denies any fever or chills. She is in the process of going to [facility] for cancer evaluation because she is unsure if the cancer is completely gone or not. She remains on her fentanyl patch for chronic pain. MD complaint: left sided chest & back pain Onset (ago): day(s) (2) Location: chest Radiation: back Severity: moderate Severity scale (1-10): 9 Quality: stabbing and aching Pain Consistency: constant Relieving factors: movement Exacerbating factors: none Associated symptoms: chest pain and shortness of breath Treatments prior to arrival: none Related Data Home Medications Medication Instructions Recorded Confirmed metoprolol succinate 50 mg 50 mg PO DAILY 09/11/20 03/16/22 tablet,extended release 24 hr aspirin 81 mg tablet,delayed 81 mg PO DAILY 12/08/20 03/16/22 release acetaminophen 500 mg tablet (Pain 1 tab PO Q8H PRN Pain 12/19/20 03/16/22 Relief Extra Strength) albuterol sulfate 90 mcg/actuation 2 puff PO Q4-6H PRN Wheezing 12/19/20 03/16/22 aerosol inhaler (ProAir HFA) latanoprost 0.005 % eye drops 1 drp ophthalmic (eye) BEDTIME 12/19/20 03/16/22 multivitamin (Daily-Tania) 1 tab PO DAILY 12/19/20 03/16/22 citalopram 20 mg tablet 1 tab PO DAILY 01/19/21 03/16/22 glipizide 2.5 mg tablet, extended 1 tab PO QAM 01/19/21 03/16/22 release 24 hr pantoprazole 40 mg tablet,delayed 1 tab PO BID 02/04/21 03/16/22 release gabapentin 300 mg tablet 300 mg PO BEDTIME 04/02/21 03/16/22 amlodipine 5 mg tablet 1 tab PO DAILY 03/16/22 03/16/22 Previous Rx's Medication Instructions Recorded polyethylene glycol 3350 17 17 g PO ONCE #510 grams 09/11/20 gram/dose oral powder (Miralax) fentanyl 50 mcg/hr transdermal 1 patch transdermal Q72H #5 ea 12/28/21 patch fentanyl 50 mcg/hr transdermal 1 patch transdermal Q72H #10 ea 02/15/22 patch fentanyl 50 mcg/hr transdermal 1 patch transdermal Q72H #10 ea 03/16/22 patch Allergies Allergy/AdvReac Type Severity Reaction Status Date / Time avocado Allergy Mild Nausea Verified 03/18/22 12:15 Penicillins [PCN] Allergy Mild RASH Verified 03/18/22 12:15 prednisone Allergy Unknown Unknown Verified 03/18/22 12:15 Review of Systems Review of Systems: Constitutional: No Fever, No Chills ENT/Mouth: No sore throat, No Rhinorrhea, No Swallowing Difficulty Eyes: No Eye Pain, No Swelling, No Redness Cardiovascular: + Chest Pain, + SOB, No Orthopnea, No Edema Respiratory: No Cough, No Sputum, No Wheezing, No dyspnea Gastrointestinal: No Nausea, No Vomiting, No Diarrhea, + abdominal Pain, No Hematochezia, No Melena Genitourinary: No Dysuria, No Urinary Frequency, No Hematuria Musculoskeletal: No joint pain, + Myalgias Skin: No Skin Lesions, No rash Neuro: No Weakness, No Numbness, No Dizziness, No Headache Psych: + Anxiety/Panic, No Depression Heme/Lymph: No Bruising, No Lymphadenopathy Endocrine: No Polyuria, No Polydipsia PMFSH Past Medical History Medical History Asthma Constipation COVID-19 vaccine series completed Diabetes mellitus GERD (gastroesophageal reflux disease) HTN (hypertension) On beta ina at home Surgical History History of colonoscopy Hx laparoscopic cholecystectomy Hx of biopsy Hx of excision of mass Hx of tubal ligation S/P colostomy S/P radiation therapy Status post chemotherapy Family History Family History Mother Family history of high blood pressure DVT (deep venous thrombosis) Sister Lupus Father Prostate cancer COPD (chronic obstructive pulmonary disease) Brother Diabetes Social History Social History (Updated 03/16/22 @ 08:29 by Arlene Elizondo CMA) Household Members: Family Housing: Apartment Are you a primary youth career specialist to a significant other at home: No Do you presently have visiting nurse or other home services: Yes ([facility]) Alcohol intake: never Patient Tobacco Use Status: Former Tobacco user Quit Date: 2011 Tobacco use type: Cigarette Use of substances other than those prescribed or required for medical reasons: No Advance Directives: Yes Advance Directives on File: Yes Advance Directives Date on File: 02/04/21 service: No Current occupational status: disabled Physical Exam ED Vital Signs: Vital Signs - 24 hr 03/18/22 12:15 03/18/22 12:23 03/18/22 13:48 Temperature 98.0 F 97.9 F Pulse Rate 58 58 56 Respiratory Rate 18 18 18 Blood Pressure 112/61 112/61 122/55 L Pulse Oximetry 98 98 99 Oxygen Delivery Method Room Air Room Air Room Air 03/18/22 14:00 Temperature Pulse Rate 59 Respiratory Rate 11 L Blood Pressure 132/55 L Pulse Oximetry 97 Oxygen Delivery Method Room Air BMI result Body Mass Index 26.6 Appearance: Alert. Oriented X3. No acute distress. Eyes: Pupils equal, round and reactive to light. ENT: Pharynx normal. Neck: Normal inspection. Neck supple. CVS: Normal heart rate and rhythm. Pulses normal. Respiratory: No respiratory distress. Breath sounds normal. No chest wall tenderness. Abdomen: Ostomy in the LLQ, red, beefy mucosa appearing with no stool in the bag. No surrounding erythema. Soft, nontender. +BS x4 Skin: Skin warm and dry. Normal skin color. Normal skin turgor. No rashes. Extremities: No lower extremity edema. No calf tenderness. Neuro: Oriented X 3. No motor deficit. No sensory deficit. Course Course Course Narrative: 66 y/o female with history of anal SCC s/p resection, chemo/XRT & chronic pain presents with 2 days of left sided back pain that is now in her left chest. EKG without ischemic changes. HR 50s and normal SpO2. Given her cancer history she is at risk for PE. Will check DDIMER. Will check troponin to r/o ACS. IV fentanyl ordered for pain. Reevaluation(s) Reevaluation #1: Pain is improved patient is resting comfortably. Her troponin is negative. Her D-dimer is unremarkable. Her chest x-ray is clear. No evidence of ACS or PE. At this time patient is stable for discharge home with plan to follow-up with her PCP. She will also follow-up with her oncologist and is referral to [facility] for 2nd opinion. training intern used to explain results and findings with patient and her daughter at the bedside. Stable for DC home. Medical Decision Making Lab Data Result diagrams: 03/18/22 12:41 03/18/22 12:41 Labs: Lab Results 03/18/22 03/18/22 03/18/22 Range/Units 12:41 12:41 12:41 WBC 4.1 L (4.8-10.8) X10*3/uL RBC 3.87 L (4.20-5.50) X10*6/uL Hgb 11.3 L (12.0-16.0) g/dl Hct 35.6 L (37.0-47.0) % MCV 92.0 (80.0-98.0) fL MCH 29.2 (27.0-33.0) pg MCHC 31.7 (31.0-35.0) g/dl RDW 14.4 (11.0-16.0) % Plt Count 198 (160-400) X10*3/uL MPV 8.8 L (9.4-12.3) fL Immature Gran % (Auto) 0.5 H (0.0-0.4) % Neut % (Auto) 66.6 (45-73) % Lymph % (Auto) 15.5 L (20-40) % [place] % (Auto) 14.3 H (2-11) % Eos % (Auto) 2.9 (0-4) % Baso % (Auto) 0.2 (0-2) % Lymph # (Auto) 0.6 L (1.2-4.9) X10*3/uL [place] # (Auto) 0.6 (0.1-1.2) X10*3/uL Eos # (Auto) 0.1 (0.0-0.4) X10*3/uL Baso # (Auto) 0.0 (0.0-0.2) X10*3/uL Abs Immat Gran (auto) 0.02 (0.00-0.03) X10*3/uL Absolute Neuts (auto) 2.8 (2.0-8.3) x10*3/uL Absolute Nucleated RBC 0.000 (0.0-0.012) X10*3/uL Nucleated RBC % (auto) 0.0 (0.0-0.2) /100WBC D-Dimer High Sensitivty NG/ML Sodium 139 (135-145) mmol/L Potassium 4.3 (3.3-5.1) mmol/L Chloride 102 (96-108) mmol/L Carbon Dioxide 31 H (22-29) mmol/L Anion Gap 10 L (12-20) BUN 21 H (9-16) mg/dL Creatinine 1.13 (0.5-1.4) mg/dL Estim Creat Clear Calc 47.7 Estimated GFR 48 Random Glucose 133 H (60-115) mg/dL Calcium 9.1 (8.4-10.2) mg/dL Magnesium 2.0 (1.6-2.6) mg/dL Total Bilirubin 0.3 (0.0-1.0) mg/dL Direct Bilirubin < 0.2 (0.0-0.5) mg/dL AST 21 (5-31) U/L ALT 27 (0-31) U/L Alkaline Phosphatase 103 (39-117) U/L Troponin I High Sens (<3.5-17.0) ng/L B-Natriuretic Peptide (<100) pg/mL Total Protein 7.0 (6.5-8.0) g/dL Albumin 3.9 (3.5-5.0) g/dL Lipase 23 (8-78) U/L Urine Color Urine Appearance Urine pH (5.0-8.0) Ur Specific [place] (1.005-1.025) Urine Protein (NEG-TRACE) MG/DL Urine Glucose (UA) (NEG) MG/DL Urine Ketones (NEG) MG/DL Urine Blood (NEG) Urine Nitrite (NEG) Ur Leukocyte Esterase (NEG) Urine RBC (0) /HPF Urine WBC (0-4) /HPF Ur Squamous Epith Cells /LPF Urine Bacteria /LPF COVID-19 (LUBNA) Negative (Negative) COVID-19 Clin Com See Note 03/18/22 03/18/22 03/18/22 Range/Units 12:41 12:41 12:41 WBC (4.8-10.8) X10*3/uL RBC (4.20-5.50) X10*6/uL Hgb (12.0-16.0) g/dl Hct (37.0-47.0) % MCV (80.0-98.0) fL MCH (27.0-33.0) pg MCHC (31.0-35.0) g/dl RDW (11.0-16.0) % Plt Count (160-400) X10*3/uL MPV (9.4-12.3) fL Immature Gran % (Auto) (0.0-0.4) % Neut % (Auto) (45-73) % Lymph % (Auto) (20-40) % [place] % (Auto) (2-11) % Eos % (Auto) (0-4) % Baso % (Auto) (0-2) % Lymph # (Auto) (1.2-4.9) X10*3/uL [place] # (Auto) (0.1-1.2) X10*3/uL Eos # (Auto) (0.0-0.4) X10*3/uL Baso # (Auto) (0.0-0.2) X10*3/uL Abs Immat Gran (auto) (0.00-0.03) X10*3/uL Absolute Neuts (auto) (2.0-8.3) x10*3/uL Absolute Nucleated RBC (0.0-0.012) X10*3/uL Nucleated RBC % (auto) (0.0-0.2) /100WBC D-Dimer High Sensitivty 227 NG/ML Sodium (135-145) mmol/L Potassium (3.3-5.1) mmol/L Chloride (96-108) mmol/L Carbon Dioxide (22-29) mmol/L Anion Gap (12-20) BUN (9-16) mg/dL Creatinine (0.5-1.4) mg/dL Estim Creat Clear Calc Estimated GFR Random Glucose (60-115) mg/dL Calcium (8.4-10.2) mg/dL Magnesium (1.6-2.6) mg/dL Total Bilirubin (0.0-1.0) mg/dL Direct Bilirubin (0.0-0.5) mg/dL AST (5-31) U/L ALT (0-31) U/L Alkaline Phosphatase (39-117) U/L Troponin I High Sens < 3.5 (<3.5-17.0) ng/L B-Natriuretic Peptide 46 (<100) pg/mL Total Protein (6.5-8.0) g/dL Albumin (3.5-5.0) g/dL Lipase (8-78) U/L Urine Color YELLOW Urine Appearance CLEAR Urine pH 6.5 (5.0-8.0) Ur Specific [place] 1.010 (1.005-1.025) Urine Protein NEG (NEG-TRACE) MG/DL Urine Glucose (UA) NEG (NEG) MG/DL Urine Ketones NEG (NEG) MG/DL Urine Blood TRACE (NEG) Urine Nitrite NEG (NEG) Ur Leukocyte Esterase NEG (NEG) Urine RBC 1-4 (0) /HPF Urine WBC 0 (0-4) /HPF Ur Squamous Epith Cells NONE /LPF Urine Bacteria NONE /LPF COVID-19 (LUBNA) (Negative) COVID-19 Clin Com ECG Data Attestation: I personally reviewed and interpreted this ECG as follows: Interpretation: sinus bradycardia, HR 58 bpm, normal LA interval. Critical Care Time Critical Care Time Critical Care Time: No Discharge Plan Discharge Clinical Impression: Atypical chest pain Patient Disposition: Home, Self-Care Instructions: Noncardiac Chest Pain (ED) Additional Instructions: Your workup today was normal. Recommend following up with your doctor Recommend Tylenol or Motrin as needed for the pain. If you develop new or worsening symptoms call 911 or come back to the ER for further evaluation. Prescriptions: No Action fentanyl 50 mcg/hr Patch 72 Hour 1 patch TRANSDERMAL Q72H Qty: 10 0RF Rx Instructions: Partial Fill upon patient request fentanyl 50 mcg/hr Patch 72 Hour 1 patch TRANSDERMAL Q72H Qty: 10 0RF citalopram 20 mg tablet 1 tab PO DAILY glipizide 2.5 mg tablet extended release 24hr 1 tab PO QAM multivitamin [Daily-Tania] Tablet 1 tab PO DAILY latanoprost 0.005 % drops 1 drp ophthalmic (eye) BEDTIME acetaminophen [Pain Relief Extra Strength] 500 mg tablet 1 tab PO Q8H PRN (Reason: Pain) albuterol sulfate [ProAir HFA] 90 mcg/actuation HFA aerosol inhaler 2 puff PO Q4-6H PRN (Reason: Wheezing) pantoprazole 40 mg tablet,delayed release (DR/EC) 1 tab PO BID gabapentin 300 mg Tablet 300 mg PO BEDTIME fentanyl 50 mcg/hr Patch 72 Hour 1 patch TRANSDERMAL Q72H Qty: 5 0RF Rx Instructions: Doctor's Order amlodipine 5 mg tablet 1 tab PO DAILY metoprolol succinate 50 mg tablet extended release 24 hr 50 mg PO DAILY polyethylene glycol 3350 [Miralax] 17 gram/dose powder 17 g PO ONCE Qty: 510 0RF Rx Instructions: As directed by gastroenterology department at [facility] aspirin 81 mg tablet,delayed release (DR/EC) 81 mg PO DAILY Print Language: [place]
[2022-03-18 12:15] VITALS: BP 112/61; PULSE 58; RESP 18; TEMP 36.7; O2SAT 98; BMI 26.6
[2022-03-18 12:23] VITALS: BP 112/61; PULSE 58; RESP 18; O2SAT 98
[2022-03-18 12:49] LABS: MANUAL DIFF FLAG NO
[2022-03-18 12:56] LABS: Basophils Percent Auto 0.2 % (0-2); Eosinophils Absolute Auto 0.1 X10*3/uL (0.0-0.4); Eosinophils Percent Auto 2.9 % (0-4); Hematocrit 35.6 % (37.0-47.0); Hemoglobin 11.3 g/dl (12.0-16.0); Imm Gran Abs Auto 0.02 X10*3/uL (0.00-0.03); Imm Gran Pct Auto 0.5 % (0.0-0.4); Lymphocytes Absolute Auto 0.6 X10*3/uL (1.2-4.9); Lymphocytes Percent Auto 15.5 % (20-40); Mean Corpuscular HGB Conc 31.7 g/dl (31.0-35.0); Mean Corpuscular Hemoglobin 29.2 pg (27.0-33.0); Mean Platelet Volume 8.8 fL (9.4-12.3); Monocytes Absolute Auto 0.6 X10*3/uL (0.1-1.2); Monocytes Percent Auto 14.3 % (2-11); Neutrophils Absolute Auto 2.8 x10*3/uL (2.0-8.3); Neutrophils Percent Auto 66.6 % (45-73); Platelet Count 198 X10*3/uL (160-400); Red Blood Count 3.87 X10*6/uL (4.20-5.50); Red Cell Distribution Width 14.4 % (11.0-16.0); White Blood Count 4.1 X10*3/uL (4.8-10.8)
[2022-03-18 13:00] LABS: Appearance Urine CLEAR; Color Urine YELLOW; Glucose Urine UA NEG (NEG); Leukocyte Esterase Urine NEG (NEG); Nitrite Urine NEG (NEG); PH 6.5 (5.0-8.0); UACC Culture Trigger NO; Urine Blood TRACE (NEG); Urine Ketones NEG (NEG); Urine Protein NEG (NEG-TRACE)
[2022-03-18 13:07] LABS: D Dimer High Sensitivity 227 NG/ML
[2022-03-18 13:10] LABS: Alanine Aminotransferase 27 U/L (0-31); Albumin Level 3.9 g/dL (3.5-5.0); Alkaline Phosphatase 103 U/L (39-117); Anion Gap 10 (12-20); Aspartate Amino Transferase 21 U/L (5-31); Bilirubin Direct < 0.2 mg/dL (0.0-0.5); Bilirubin Total 0.3 mg/dL (0.0-1.0); Blood Urea Nitrogen 21 mg/dL (9-16); Calcium 9.1 mg/dL (8.4-10.2); Carbon Dioxide 31 mmol/L (22-29); Chloride 102 mmol/L (96-108); Creatinine Clr Calc Pharmacy 47.7; Estimated Glomerular Filt Rate 48; Glucose Random 133 mg/dL (60-115); Lipase 23 U/L (8-78); Potassium 4.3 mmol/L (3.3-5.1); Sodium 139 mmol/L (135-145)
[2022-03-18 13:13] LABS: B Type Natriuretic Peptide 46 pg/mL (<100); Troponin-I High Sensitivity < 3.5 ng/L (<3.5-17.0)
[2022-03-18 13:15] LABS: WBC Urine 0 /HPF (0-4)
[2022-03-18 13:20] LABS: COVID-19 Test Negative (Negative); IDNOW Serial# 16C4AD1C
[2022-03-18] MEDS: fentaNYL citrate/PF 100 MCG/2 ML VIAL 50 MCG IVPUSH (13:45)
[2022-03-18 13:48] VITALS: BP 122/55; PULSE 56; RESP 18; TEMP 36.6; O2SAT 99
[2022-03-18 14:00] VITALS: BP 132/55; PULSE 59; RESP 11; O2SAT 97
== END 2022-03-18 16:27 | disposition home or self-care (01) ==
PROVIDERS: Physician Assistant; Emergency Provider Emergency Medicine
DX: R07.89 Other chest pain (principal); Z20.822 Contact with and (suspected) exposure to COVID-19; R06.02 Shortness of breath; R10.32 Left lower quadrant pain; E11.9 Type 2 diabetes mellitus without complications; I10 Essential (primary) hypertension; Z79.82 Long term (current) use of aspirin
CPT/HCPCS: 36415; 71045; 80048; 80076; 81001; 81003; 83690; 83735; 83880; 84484; 85025; 85379; 87635; 93005; 96374; 99284; J3010

== ENCOUNTER 2022-04-23 12:19 | Outpatient (REF) | payer OTHER, SELFPAY ==
--- NOTE | ~2022-04-23 | MM_ITS ---
EXAMINATION: BONE DENSITOMETRY CLINICAL INDICATION: Menopause. COMPARISON: Baseline BD dated 11/21/2009. TECHNIQUE: Using a [employer] DXA System (software version: 13.1) manufactured by [employer], dual-energy x-ray absorptiometry was performed of the lumbar spine and left hip. The images are of good technical quality. Summary results are attached. FINDINGS: AP SPINE L1-L4: Current: BMD 1.176 g/cm2, Z-score 1.3, T-score 0.0, normal, 3.1% decrease from baseline (<5% change is not significant). Baseline: BMD 1.214 g/cm2. LEFT FEMUR, NECK: Current: BMD 0.881 g/cm2, Z-score 0.2, T-score -1.1, osteopenia. Baseline: BMD 1.034 g/cm2. LEFT FEMUR, TOTAL: Current: BMD 0.978 g/cm2, Z-score 0.8, T-score -0.2, normal, 13.8% decrease from baseline (<5% change is not significant). Baseline: BMD 1.135 g/cm2. IDENTIFIED RISK FACTORS: Menopause, rheumatoid arthritis. HISTORY OF FRACTURE: None listed. MEDICATIONS: Calcium, vitamin D. MM/XR DEXA axial skeleton IMPRESSION: 1. DIAGNOSIS: Osteopenia based on the lowest T-score value of -1.1 in the femoral neck applying World Health Organization criteria. 2. 10-YEAR FRACTURE RISK PREDICTION, FRAX: Major osteoporotic fracture (clinical spine, forearm, hip or shoulder) 3.8%. Hip fracture 0.3%. 3. Treatment Recommendations: NOF guidelines recommend consideration for treatment in postmenopausal women and men age 50 and older presenting with the following: -A hip or vertebral (clinical or morphometric) fracture. -T-score less than or equal to -2.5 at the femoral neck or spine after appropriate evaluation to exclude secondary causes. -Low bone mass at the hip or spine and a 10-year fracture probability by FRAX of greater than or equal to 3% for hip fracture or greater than or equal to 20% for major osteoporotic fracture based on the [place] adapted WHO algorithm. 4. Other Recommendations: All treatment decisions require clinical judgment and consideration of individual patient factors, including patient preferences, comorbidities, previous drug use, risk factors not captured in the FRAX model (e.g. frailty, falls, vitamin D deficiency, increased bone turnover, interval significant decline in bone density) and possible under or overestimation of fracture risk by FRAX. Additional medical evaluation for secondary cause of low bone mineral density may be appropriate. FUTURE SCAN RECOMMENDATION: People with diagnosed cases of osteoporosis or at high risk for fracture should have regular bone mineral density tests. For patients eligible for Medicare, routine testing is allowed once every 2 years. The testing frequency can be increased to one year for patients who have rapidly progressing disease, those who are receiving or discontinuing medical therapy to restore bone mass, or have additional risk factors.
--- NOTE | ~2022-04-23 | MM_ITS ---
EXAMINATION: MM SCREENING DIGITAL BREAST TOMOSYNTHESIS, BILATERAL CLINICAL INFORMATION: Screening. Asymptomatic. The lifetime risk of breast cancer based on the Tyrer-Cuzick Model is 6%. COMPARISON: Mammography: 07/29/2020, 07/19/2019, 06/22/2018 TECHNIQUE: Digital breast tomosynthesis is performed in both the craniocaudal and mediolateral oblique views along with computer-aided detection (CAD). Synthesized 2D images are generated from the tomosynthesis. FINDINGS: There are scattered areas of fibroglandular density (ACR BI-RADS breast composition Category b). There are no significant masses, abnormal calcifications, or other abnormalities. Parenchymal pattern is similar to prior studies. Minor asymmetries are stable. No developing density. MM/MM tomosynthesis screening BI IMPRESSION: No mammographic evidence of malignancy. ASSESSMENT: BI-RADS 2: Benign RECOMMENDATION: Routine annual mammography screening. This patient's information was entered into a reminder system with a target due date for their next mammogram.
== END 2022-04-23 12:20 | disposition home or self-care (01) ==
LOC: HO.MAMMO 12:19
PROVIDERS: Visit Provider Obstetrics & Gynecology
DX: Z12.31 Encounter for screening mammogram for malignant neoplasm of breast (principal); Z78.0 Asymptomatic menopausal state; M06.9 Rheumatoid arthritis, unspecified
CPT/HCPCS: 77063; 77067; 77080

== ENCOUNTER → 2022-05-17 09:55 | Outpatient (BNVA) | payer OTHER, SELFPAY | PROVIDERS: PCP Nurse Practitioner Primary Care; Referring Provider Nurse Practitioner Primary Care; Visit Provider Surgery | DX: C21.0 Malignant neoplasm of anus, unspecified (principal) | CPT/HCPCS: 99212 ==

== ENCOUNTER 2023-01-23 21:35 | Emergency (ER) | payer OTHER, SELFPAY ==
[2023-01-23 21:43] VITALS: BP 145/100; PULSE 58; RESP 16; TEMP 36.6; O2SAT 98; BMI 28.3
--- NOTE | 2023-01-23 22:44 | ED_ITS ---
HPI - General Adult General Chief complaint: Wound/Laceration Stated complaint: laceration to nose Time Seen by Provider: 01/23/23 22:16 Source: patient, family, RN notes reviewed and old records reviewed Mode of arrival: ambulatory Limitations: no limitations History of Present Illness HPI narrative: 67-year-old female presents for evaluation of laceration to the bridge of her nose. Patient reports that she was at [employer] when she was were stripping. She to her head down quickly and her nose struck the lawrence. She did not feel any pain pain Should not lose consciousness Denies any blurry vision, lightheadedness, nausea or vomiting Her tetanus is with the last 10 years Related Data Home Medications Medication Instructions Recorded Confirmed metoprolol succinate 50 mg 50 mg PO DAILY 09/11/20 11/02/22 tablet,extended release 24 hr aspirin 81 mg tablet,delayed 81 mg PO DAILY 12/08/20 11/02/22 release acetaminophen 500 mg tablet (Pain 1 tab PO Q8H PRN Pain 12/19/20 11/02/22 Relief Extra Strength (acetaminophen)) albuterol sulfate 90 mcg/actuation 2 puff PO Q4-6H PRN Wheezing 12/19/20 11/02/22 aerosol inhaler (ProAir HFA) latanoprost 0.005 % eye drops 1 drp ophthalmic (eye) BEDTIME 12/19/20 11/02/22 multivitamin (Daily-Tania tablet) 1 tab PO DAILY 12/19/20 11/02/22 citalopram 20 mg tablet 40 mg PO DAILY 01/19/21 11/02/22 glipizide 2.5 mg tablet, extended 1 tab PO QAM 01/19/21 11/02/22 release 24 hr pantoprazole 40 mg tablet,delayed 1 tab PO BID 02/04/21 11/02/22 release gabapentin 300 mg tablet 300 mg PO BEDTIME 04/02/21 11/02/22 amlodipine 5 mg tablet 1 tab PO DAILY 03/16/22 11/02/22 lorazepam 0.5 mg tablet 1 tab PO BID PRN Anxiety 05/07/22 11/02/22 Previous Rx's Medication Instructions Recorded lidocaine 5 % topical patch 1 patch topical DAILY #15 ea 03/18/22 naproxen 500 mg tablet 500 mg PO BID PRN pain #20 tabs 06/09/22 fentanyl 50 mcg/hr transdermal 1 patch transdermal Q72H #5 ea 08/03/22 patch polyethylene glycol 3350 17 17 g PO ONCE #510 grams 11/21/22 gram/dose oral powder (Miralax) fentanyl 50 mcg/hr transdermal 1 patch transdermal Q72H #5 ea 12/15/22 patch fentanyl 50 mcg/hr transdermal 1 patch transdermal Q72H #5 ea 01/11/23 patch Allergies Allergy/AdvReac Type Severity Reaction Status Date / Time avocado Allergy Mild Nausea Verified 01/23/23 21:42 Penicillins [PCN] Allergy Mild RASH Verified 01/23/23 21:42 prednisone Allergy Unknown Unknown Verified 01/23/23 21:42 Review of Systems Constitutional: Constitutional: Reports as per HPI, Denies chills, Denies fatigue, Denies fever(s) and Denies headache(s) ENT: Denies headache(s) Cardiovascular: Cardiovascular: Denies chest pain and Denies dyspnea Respiratory: Respiratory: Denies cough and Denies dyspnea Gastrointestinal: Gastrointestinal: Denies abdominal pain, Denies constipation and Denies vomiting Genitourinary: Genitourinary: Denies dysuria Neurologic: Denies headache(s) and Denies focal weakness Endocrine: Endocrine: Denies fatigue PMFSH Past Medical History Medical History Asthma Constipation COVID-19 vaccine series completed Diabetes mellitus GERD (gastroesophageal reflux disease) HTN (hypertension) On beta ina at home Surgical History History of colonoscopy Hx laparoscopic cholecystectomy Hx of biopsy Hx of excision of mass Hx of tubal ligation S/P colostomy S/P radiation therapy Status post chemotherapy Family History Family History Mother Family history of high blood pressure DVT (deep venous thrombosis) Sister Lupus Father Prostate cancer COPD (chronic obstructive pulmonary disease) Brother Diabetes Social History Social History (Updated 11/02/22 @ 09:27 by Arlene Elizondo CMA) Household Members: Family Housing: Apartment Are you a primary child daycare worker to a significant other at home: No 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) Alcohol intake: never Patient Tobacco Use Status: Former Tobacco user Quit Date: 2011 Tobacco use type: Cigarette Advance Directives: Yes Advance Directives on File: Yes Advance Directives Date on File: 02/04/21 service: No Current occupational status: disabled Physical Exam ED Vital Signs: Vital Signs - 24 hr 01/23/23 21:43 Temperature 97.8 F Pulse Rate 58 Respiratory Rate 16 Blood Pressure 145/100 H Pulse Oximetry 98 Oxygen Delivery Method Room Air BMI result Body Mass Index 28.3 Const General: healthy appearing, comfortable, no acute distress, alert and awake Nutritional Appearance: well nourished Orientation/consciousness: patient oriented x3 HENMT Head: Yes normocephalic and Yes atraumatic Face and sinus: Yes laceration and Yes other (No laxity over the nasal bone) Throat: Yes posterior oropharynx normal Eyes Eyelids: Yes eyelids normal Conjunctivae: conjunctivae normal Sclerae: sclerae normal Corneas: corneas normal Pupils: Equal, round and reactive pupils present EOM: EOMs intact bilaterally Neck Neck: Yes full ROM Resp Effort & Inspection: normal respiratory effort, able to speak in complete sentences, no audible wheezes and not labored Auscultation: clear to auscultation bilaterally Cardio Rate: regular rate Rhythm: regular rhythm GI Inspection: No distended Palpation (GI): Soft to palpation, not firm, nontender, no guarding and not rigid Auscultation: normoactive bowel sounds Skin Other: 3 cm full-thickness linear laceration to the bridge of the nose Neuro General: patient oriented x3 Cranial nerves: Yes CN's II-XII intact bilaterally, Yes Equal, round and reactive pupils present and Yes Bilaterally intact EOM present Cognition (Neuro): normal cognition Extrem Other: Moving all extremities well without any obvious deformities Procedures Laceration Laceration 1: Site: face Size (cm): 3 Description: linear Depth: simple, single layer Local Anesthetic: lidocaine 1% Amount of anesthesia used (mL): 3 Skin layer closed with: nylon Size (cm): 6-0 Number of sutures: 3 Medical Decision Making Medical Decision Making MDM Narrative: The patient struck her nose against the chair in front of her causing a laceration. There is no loss of conscious, she is not on blood thinners. See procedure note. I do not see any indication for emergent imaging of the brain at this time. The patient has a negative neuro exam Differential Diagnosis Laceration Skin tear Puncture wound Abrasion Contusion Discharge Plan Discharge Clinical Impression: Laceration Patient Disposition: Home, Self-Care Instructions: Laceration (ED) Additional Instructions: You had 3 sutures placed today. Keep the area clean and dry. These can be removed in 5-7 days Prescriptions: No Action fentanyl 50 mcg/hr Patch 72 Hour 1 patch TRANSDERMAL Q72H Qty: 5 0RF Rx Instructions: Partial Fill upon patient request. citalopram 20 mg tablet 40 mg PO DAILY glipizide 2.5 mg tablet extended release 24hr 1 tab PO QAM multivitamin [Daily-Tania] Tablet 1 tab PO DAILY latanoprost 0.005 % drops 1 drp ophthalmic (eye) BEDTIME acetaminophen [Pain Relief ES (acetaminophen)] 500 mg tablet 1 tab PO Q8H PRN (Reason: Pain) albuterol sulfate [ProAir HFA] 90 mcg/actuation HFA aerosol inhaler 2 puff PO Q4-6H PRN (Reason: Wheezing) pantoprazole 40 mg tablet,delayed release (DR/EC) 1 tab PO BID gabapentin 300 mg Tablet 300 mg PO BEDTIME amlodipine 5 mg tablet 1 tab PO DAILY lorazepam 0.5 mg tablet 1 tab PO BID PRN (Reason: Anxiety) fentanyl 50 mcg/hr Patch 72 Hour 1 patch TRANSDERMAL Q72H Qty: 5 0RF Rx Instructions: Doctor's Order fentanyl 50 mcg/hr Patch 72 Hour 1 patch TRANSDERMAL Q72H Qty: 5 0RF Rx Instructions: Partial Fill upon patient request. lidocaine 5 % adhesive patch,medicated 1 patch topical DAILY Qty: 15 0RF Rx Instructions: leave on most painful area for up to 12 hrs naproxen 500 mg tablet 500 mg PO BID PRN (Reason: pain) Qty: 20 0RF metoprolol succinate 50 mg tablet extended release 24 hr 50 mg PO DAILY polyethylene glycol 3350 [Miralax] 17 gram/dose powder 17 g PO ONCE Qty: 510 4RF Rx Instructions: As directed by gastroenterology department at [facility] aspirin 81 mg tablet,delayed release (DR/EC) 81 mg PO DAILY
== END 2023-01-23 22:52 | disposition home or self-care (01) ==
PROVIDERS: Emergency Provider Emergency Medicine Emergency Medical Services
DX: S01.21XA Laceration without foreign body of nose, initial encounter (principal); W01.10XA Fall on same level from slipping, tripping and stumbling with subsequent striking against unspecified object, initial encounter; Y93.9 Activity, unspecified; Y92.22 Religious institution as the place of occurrence of the external cause; Y99.9 Unspecified external cause status; Z79.899 Other long term (current) drug therapy
CPT/HCPCS: 12013; 99282; 99284

== ENCOUNTER → 2023-03-02 09:56 | Outpatient (BNVA) | payer OTHER, SELFPAY | PROVIDERS: PCP Nurse Practitioner Primary Care; Visit Provider Obstetrics & Gynecology ==

== ENCOUNTER → 2023-03-23 14:39 | Outpatient (BNVA) | payer OTHER, SELFPAY | PROVIDERS: PCP Nurse Practitioner Primary Care; Visit Provider Surgery ==

== ENCOUNTER 2023-03-24 09:22 | Outpatient (REF) | payer OTHER, SELFPAY ==
[2023-03-24 11:15] LABS: Blood Urea Nitrogen 18 mg/dL (9-16); Estimated Glomerular Filt Rate 47
== END 2023-03-24 09:23 | disposition home or self-care (01) ==
LOC: CF 09:22
PROVIDERS: PCP Nurse Practitioner Primary Care; Visit Provider Surgery
DX: C21.0 Malignant neoplasm of anus, unspecified (principal); Z90.49 Acquired absence of other specified parts of digestive tract; Z79.899 Other long term (current) drug therapy
CPT/HCPCS: 36415; 82565; 84520; 99212

== ENCOUNTER 2023-04-15 10:18 | Outpatient (REF) | payer OTHER, SELFPAY ==
--- NOTE | ~2023-04-15 | CT_ITS ---
EXAMINATION: CT ABDOMEN AND PELVIS WITH CONTRAST CLINICAL INFORMATION: Z90.49 - Acquired absence of other specified parts of digestive tract COMPARISON: 02/23/2021 CT scan and 08/14/2021 PET/CT scan TECHNIQUE: Multidetector volumetric imaging was performed from the superior aspect of the liver through the pubic symphysis following administration of 85 mL Omnipaque 300 intravenous contrast. Sagittal and coronal reformatted images were obtained on the technologist workstation.. This CT examination was performed using dose optimization techniques as appropriate, variously including the following: *Automated exposure control *Adjustment of mA and/or kV according to patient size (this includes techniques or standardized protocols for targeted exams where dose is matched to indication/reason for exam; i.e. extremities or head) *Use of iterative reconstruction technique DLP: 439 mGy-cm FINDINGS: LUNG BASES: There is a partially visualized discoid appearing opacity along the lateral right fissure best appreciated on the first slice of the study. This area had a more normal appearance on the prior examination. This is not completely characterized and in this setting a dedicated CT scan of the chest would be warranted to evaluate this further. Small hiatal hernia is noted. LIVER, GALLBLADDER, AND BILIARY TREE: Diffuse fatty infiltration of the liver but no focal hepatic lesion or biliary ductal dilatation the gallbladder surgically absent PANCREAS: Unremarkable. SPLEEN: Unremarkable. ADRENAL GLANDS: Stable low-attenuation 1.3 cm left adrenal nodule likely representing an adrenal adenoma when compared to the prior noncontrast study. KIDNEYS AND URETERS: Scattered low-attenuation renal cortical cysts bilaterally. No obstructive changes BLADDER: Decompressed GASTROINTESTINAL TRACT: There is ill-defined mass in the deep right pelvis abutting the coccyx medially and extending into the posterior right pelvis floor musculature and right gluteal muscle. This ill-defined soft tissue measures approximately 5.6 x 4.2 cm in size and is difficult to separate from adjacent structures. There are postoperative changes in this location with a possible chrysalis flap which could be correlated with patient's surgical history. This had a more normal appearance on the prior examinations but those were preoperative examinations. The patient is status post resection of the rectum and distal colon with a left lower quadrant colostomy in place. I do not appreciate any obstructive changes to the more proximal colon. No colonic wall thickening. Visualized small bowel grossly unremarkable ABDOMINAL WALL: There is parastomal fat herniation but no obvious peristomal small bowel herniation LYMPHOVASCULAR STRUCTURES: Mild vascular calculation in aorta. No bulky mesenteric or retroperitoneal adenopathy PELVIC VISCERA: Descended into the pelvis with pelvic floor laxity. Fibroid uterus is again noted OSSEOUS STRUCTURES: Degenerative changes in the spine and hips but no acute bony abnormality CT/CT abdomen pelvis w IV con IMPRESSION: 1. Postoperative changes status post resection of the rectum and distal colon with a left lower quadrant colostomy in place. I do not appreciate any obstructive changes to the more proximal colon bowel. 2. There is an ill-defined soft tissue mass in the deep right pelvis abutting the coccyx and extending into the posterior right pelvis floor musculature and right gluteal muscle. This is difficult to separate from adjacent structures. This area had a more normal appearance on the prior preoperative examination. I do not appreciate any discrete soft tissue mass in this location on the prior studies even in retrospect. Clinical correlation would be recommended. There is a suggestion of a possible gracilis flap to this region and clinical correlation with surgical history in this location would be necessary. Underlying tumor would be difficult to exclude based on this appearance alone 3. There is a partially visualized discoid appearing opacity along the lateral right fissure best appreciated on the first slice of the study. Unfortunately this is not able to be defined further on this study. This could be further evaluated with a dedicated CT scan of the chest. 4. Chronic appearing and postoperative changes otherwise as described above.
[2023-04-15] MEDS: iohexoL 350 MG/ML 100 ML INFUS..BTL 85 ML IV (10:55)
== END 2023-04-15 10:19 | disposition home or self-care (01) ==
LOC: HO.CT 10:18
PROVIDERS: PCP Nurse Practitioner Primary Care; Visit Provider Surgery
DX: C21.0 Malignant neoplasm of anus, unspecified (principal); Z90.49 Acquired absence of other specified parts of digestive tract
CPT/HCPCS: 74177; Q9967

== ENCOUNTER 2023-04-27 09:53 | Outpatient (AMB) | payer OTHER, SELFPAY ==
--- NOTE | 2023-04-27 09:54 | A.OFFVIS_ITS ---
Intake Vital Signs 04/27/23 10:01 Height 5 ft Weight 164 lb BMI 32.0 BP 141/62 H Blood Pressure Location Rt brachial Position Sitting Pulse 69 Intake Visit Reasons: Ct-Scan results Intake Note: This patient presents for a follow-up assessment for Ct-Scan results. Patient denies complaints at this time. 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 Accompanied by: [employer] Allergies avocado Allergy (Mild, Verified 04/27/23 09:55) Nausea Penicillins [PCN] Allergy (Mild, Verified 04/27/23 09:55) RASH prednisone Allergy (Unknown, Verified 04/27/23 09:55) Unknown Medication List - Last Reconciled 04/27/23 by Jesus Del Angel MD acetaminophen (Pain Relief Extra Strength (acetaminophen)) 1 tab PO Q8H PRN albuterol sulfate 90 mcg/actuation (ProAir HFA) 2 puffs PO Q4-6H PRN amlodipine 1 tab PO DAILY aspirin 81 mg PO DAILY blood sugar diagnostic (FreeStyle Lite Strips) As directed citalopram 40 mg PO DAILY fentanyl 25 mcg/hr 1 patch transdermal Q72H fentanyl 25 mcg/hr 1 patch transdermal Q72H fentanyl 25 mcg/hr 1 patch transdermal Q72H gabapentin 300 mg PO BEDTIME lancets (FreeStyle Lancets) As directed latanoprost 0.005% 1 drp ophthalmic (eye) BEDTIME lidocaine 5% 1 patch topical DAILY lorazepam 1 tab PO BID PRN metoprolol succinate ER 50 mg PO DAILY multivitamin (Daily-Tania tablet) 1 tab PO DAILY naproxen 500 mg PO BID PRN polyethylene glycol 3350 (Miralax) 17 grams PO ONCE HPI Ct-Scan results HPI Details She had undergone proctectomy in [place] 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 I had seen her in March, for a follow-up. She had been doing well. She describes chronic pain on the proctectomy site. I therefore sent her CAT scan. She has had this pain since immediately postop. She says the pain is felt as well on the middle aspect of her thighs as well as on the buttock and hip. Says that this has not changed since her surgery from last year and she has been on a fentanyl patch. Her stoma has been functioning well. [facility] Medical History Asthma Constipation COVID-19 vaccine series completed Diabetes mellitus GERD (gastroesophageal reflux disease) HTN (hypertension) On beta ina at home Surgical History (Updated 04/27/23 @ 10:17 by Jesus Del Angel MD) H/O resection of rectum History of colonoscopy Hx laparoscopic cholecystectomy Hx of biopsy Hx of excision of mass Hx of resection of rectum Hx of tubal ligation S/P colostomy S/P radiation therapy Status post chemotherapy Family History Mother Family history of high blood pressure DVT (deep venous thrombosis) Sister Lupus Father Prostate cancer COPD (chronic obstructive pulmonary disease) Brother Diabetes Social History Household Members: Family Housing: Apartment Are you a primary residential care officer to a significant other at home: No 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) Alcohol intake: never Patient Tobacco Use Status: Former Tobacco user Quit Date: 2011 Tobacco use type: Cigarette Advance Directives Date on File: 02/04/21 service: No Current occupational status: disabled Female Reproductive History Menstrual Age of Menarche: 12 Review of Systems Const Denies chills and Denies fever(s) Card Denies chest pain, Denies dyspnea and Denies dyspnea on exertion Resp Denies cough, Denies dyspnea and Denies dyspnea on exertion GI Denies hematochezia Denies hematuria Musc Reports back pain, Reports arthralgias and Reports limited range of motion Neuro Denies focal weakness and Denies convulsions Psych Denies depression and Denies mood swings Physical Exam Vital Signs: Last Vital Signs Pulse 69 04/27/23 10:01 BP 141/62 H 04/27/23 10:01 BMI result Body Mass Index 32.0 Const Other: Walks with a cane General: comfortable and no acute distress Resp Effort & Inspection: normal respiratory effort Cardio Rate: regular rate GI Other: Stoma functioning well Palpation (GI): Soft to palpation, not firm and nontender Back/Spine/Pelvis Other: No palpable masses in the perineal area or buttock, proctectomy site is actually well healed, some tenderness diffusely on the right medial thigh and the right buttock Assessment & Plan Assessment & Plan (1) Hx of resection of rectum: Code(s): Z90.49 - Acquired absence of other specified parts of digestive tract Plan: She had proctectomy last here in [place] for anal canal squamous cell carcinoma. She has had chronic pain since postop on the area as well as the medial thigh. I have reviewed her CAT scan. There is note of a vague soft tissue mass adjacent to the coccyx but this appears to be the gracilis flap that had been used to reconstruct the floor of the pelvis. There is otherwise no suggestion of any new malignancy or recurrence. She actually has been doing very well. Her main complaint is that she has had pain in the area of the surgery since postop . I explained to her that with the gracilis flap, it is not unexpected to have this much pain on the area of the thighs as well as the buttocks. I can try her on Percocet as she is willing to do this and stop her fentanyl patch. I had instructed her to follow-up with Dr. Lanier as well. I am uncertain as to when her PET scan will be scheduled so I will defer to Dr. Lanier for this. I discussed above with her daughter. Medications: Discontinued fentanyl 50 mcg/hr Partial Fill upon patient request. 1 patch transdermal Q72H 5 ea 0RF fentanyl 50 mcg/hr Partial Fill upon patient request. 1 patch transdermal Q72H 5 ea 0RF fentanyl 50 mcg/hr Partial Fill upon patient request. 1 patch transdermal Q72H 5 ea 0RF fentanyl 25 mcg/hr Partial Fill upon patient request. 1 patch transdermal Q72H 10 ea 0RF Coding Level of Care Code Est Pt Level 4 (73312) Diagnoses Hx of resection of rectum Z90.49
[2023-04-27 10:01] VITALS: BP 141/62; PULSE 69; BMI 32.0
== END 2023-04-27 10:31 | disposition home or self-care (01) ==
PROVIDERS: PCP Nurse Practitioner Primary Care; Visit Provider Surgery
DX: Z90.49 Acquired absence of other specified parts of digestive tract (principal)
CPT/HCPCS: 99214

== ENCOUNTER → 2023-04-27 09:53 | Outpatient (BNVA) | payer OTHER, SELFPAY | PROVIDERS: PCP Nurse Practitioner Primary Care; Visit Provider Surgery | DX: Z90.49 Acquired absence of other specified parts of digestive tract (principal) | CPT/HCPCS: 99212 ==

== ENCOUNTER 2023-07-30 18:14 | Emergency (ER) | payer OTHER, SELFPAY ==
[2023-07-30 18:52] VITALS: BP 165/78; PULSE 65; RESP 18; TEMP 36.4; O2SAT 95; BMI 34.5
[2023-07-30 19:03] LABS: Glucose, Whole Blood 295 mg/dL (60-115)
[2023-07-30 19:13] LABS: MANUAL DIFF FLAG NO
[2023-07-30 19:14] LABS: Basophils Percent Auto 0.5 % (0-2); Eosinophils Absolute Auto 0.2 X10*3/uL (0.0-0.4); Eosinophils Percent Auto 3.1 % (0-4); Hematocrit 39.1 % (37.0-47.0); Hemoglobin 12.7 g/dl (12.0-16.0); Imm Gran Abs Auto 0.03 X10*3/uL (0.00-0.03); Imm Gran Pct Auto 0.5 % (0.0-0.4); Lymphocytes Absolute Auto 1.3 X10*3/uL (1.2-4.9); Lymphocytes Percent Auto 21.7 % (20-40); Mean Corpuscular HGB Conc 32.5 g/dl (31.0-35.0); Mean Corpuscular Hemoglobin 28.2 pg (27.0-33.0); Mean Corpuscular Volume 86.9 fL (80.0-98.0); Mean Platelet Volume 9.5 fL (9.4-12.3); Monocytes Absolute Auto 0.8 X10*3/uL (0.1-1.2); Monocytes Percent Auto 12.8 % (2-11); Neutrophils Absolute Auto 3.6 x10*3/uL (2.0-8.3); Neutrophils Percent Auto 61.4 % (45-73); Platelet Count 247 X10*3/uL (160-400); Red Cell Distribution Width 14.3 % (11.0-16.0); White Blood Count 5.9 X10*3/uL (4.8-10.8)
[2023-07-30 19:32] LABS: Alanine Aminotransferase 26 U/L (0-31); Albumin Level 3.7 g/dL (3.5-5.0); Alkaline Phosphatase 133 U/L (39-117); Anion Gap 14 (12-20); Aspartate Amino Transferase 36 U/L (5-31); Bilirubin Total 0.3 mg/dL (0.0-1.0); Blood Urea Nitrogen 25 mg/dL (9-16); Calcium 9.6 mg/dL (8.4-10.2); Carbon Dioxide 23 mmol/L (22-29); Chloride 103 mmol/L (96-108); Creatinine Clr Calc Pharmacy 42.1; Estimated Glomerular Filt Rate 46; Glucose Random 341 mg/dL (60-115); Potassium 4.1 mmol/L (3.3-5.1); Sodium 136 mmol/L (135-145); Total Protein 7.3 g/dL (6.5-8.0)
--- NOTE | 2023-07-30 20:49 | ED_ITS ---
HPI - General Adult General Chief complaint: General Medical Stated complaint: high blood sugar 300 Related Data Home Medications Medication Instructions Recorded Confirmed metoprolol succinate 50 mg 50 mg PO DAILY 09/11/20 07/26/23 tablet,extended release 24 hr aspirin 81 mg tablet,delayed 81 mg PO DAILY 12/08/20 07/26/23 release acetaminophen 500 mg tablet (Pain 1 tab PO Q8H PRN Pain 12/19/20 07/26/23 Relief Extra Strength (acetaminophen)) albuterol sulfate 90 mcg/actuation 2 puff PO Q4-6H PRN Wheezing 12/19/20 07/26/23 aerosol inhaler (ProAir HFA) latanoprost 0.005 % eye drops 1 drp ophthalmic (eye) BEDTIME 12/19/20 07/26/23 multivitamin (Daily-Tania tablet) 1 tab PO DAILY 12/19/20 07/26/23 citalopram 20 mg tablet 40 mg PO DAILY 01/19/21 07/26/23 gabapentin 300 mg tablet 300 mg PO BEDTIME 04/02/21 07/26/23 amlodipine 5 mg tablet 1 tab PO DAILY 03/16/22 07/26/23 lorazepam 0.5 mg tablet 1 tab PO BID PRN Anxiety 05/07/22 07/26/23 blood sugar diagnostic (FreeStyle #10 ea 03/02/23 07/26/23 Lite Strips) lancets 28 gauge (FreeStyle #100 ea 03/02/23 07/26/23 Lancets) Previous Rx's Medication Instructions Recorded lidocaine 5 % topical patch 1 patch topical DAILY #15 ea 03/18/22 naproxen 500 mg tablet 500 mg PO BID PRN pain #20 tabs 03/18/22 polyethylene glycol 3350 17 17 g PO ONCE #510 grams 11/21/22 gram/dose oral powder (Miralax) fentanyl 25 mcg/hr transdermal 1 patch transdermal Q72H #5 ea 04/19/23 patch oxycodone-acetaminophen 5 mg-325 1 tab PO Q6H PRN pain #30 tabs 04/28/23 mg tablet (Percocet) sennosides 8.6 mg tablet (Karen-michael) 8.6 mg PO BID #60 tabs 05/09/23 fentanyl 50 mcg/hr transdermal 1 patch transdermal Q72H #10 ea 07/13/23 patch Allergies Allergy/AdvReac Type Severity Reaction Status Date / Time avocado Allergy Mild Nausea Verified 07/30/23 19:00 Penicillins [PCN] Allergy Mild RASH Verified 07/30/23 19:00 prednisone Allergy Unknown Unknown Verified 07/30/23 19:00 [facility] Past Medical History Medical History (Updated 07/31/23 @ 17:45 by Jonna Purdy NP) COVID-19 vaccine series completed Asthma On beta ina at home Constipation HTN (hypertension) GERD (gastroesophageal reflux disease) Diabetes mellitus Surgical History (Updated 07/26/23 @ 10:04 by Navya Lanier MD) Hx of resection of rectum H/O resection of rectum Hx of biopsy S/P radiation therapy Status post chemotherapy S/P colostomy Hx of excision of mass Hx laparoscopic cholecystectomy Hx of tubal ligation History of colonoscopy Family History Family History Mother Family history of high blood pressure DVT (deep venous thrombosis) Sister Lupus Father Prostate cancer COPD (chronic obstructive pulmonary disease) Brother Diabetes Social History Social History Household Members: Family Housing: Apartment Are you a primary career guidance technician to a significant other at home: No Do you presently have 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 Patient is a 67-year-old female with history of DM, asthma, HTN, GERD presenting to the emergency department with complaint of elevated blood glucose levels. Reports labile glucose levels over the past several weeks. Reports recent dose change of glipizide a few days ago, reports POC at home was 345 minutes after taking glipizide. POC in triage 295. Patient complains of tingling across upper lip, denies any other symptoms. Plan: labs Medical Decision Making Lab Data 07/30/23 19:10 07/30/23 19:10 Labs: Lab Results 07/30/23 07/30/23 Range/Units 18:58 19:10 WBC 5.9 (4.8-10.8) X10*3/uL RBC 4.50 (4.20-5.50) X10*6/uL Hgb 12.7 (12.0-16.0) g/dl Hct 39.1 (37.0-47.0) % MCV 86.9 (80.0-98.0) fL MCH 28.2 (27.0-33.0) pg MCHC 32.5 (31.0-35.0) g/dl RDW 14.3 (11.0-16.0) % Plt Count 247 (160-400) X10*3/uL MPV 9.5 (9.4-12.3) fL Immature Gran % (Auto) 0.5 H (0.0-0.4) % Neut % (Auto) 61.4 (45-73) % Lymph % (Auto) 21.7 (20-40) % Hoke % (Auto) 12.8 H (2-11) % Eos % (Auto) 3.1 (0-4) % Baso % (Auto) 0.5 (0-2) % Lymph # (Auto) 1.3 (1.2-4.9) X10*3/uL Hoke # (Auto) 0.8 (0.1-1.2) X10*3/uL Eos # (Auto) 0.2 (0.0-0.4) X10*3/uL Baso # (Auto) 0.0 (0.0-0.2) X10*3/uL Abs Immat Gran (auto) 0.03 (0.00-0.03) X10*3/uL Absolute Neuts (auto) 3.6 (2.0-8.3) x10*3/uL Absolute Nucleated RBC 0.000 (0.0-0.012) X10*3/uL Nucleated RBC % (auto) 0.0 (0.0-0.2) /100WBC Sodium 136 (135-145) mmol/L Potassium 4.1 (3.3-5.1) mmol/L Chloride 103 (96-108) mmol/L Carbon Dioxide 23 (22-29) mmol/L Anion Gap 14 (12-20) BUN 25 H (9-16) mg/dL Creatinine 1.18 (0.5-1.4) mg/dL Estim Creat Clear Calc 42.1 Estimated GFR 46 POC Glucose 295 H (60-115) mg/dL Random Glucose 341 H (60-115) mg/dL Calcium 9.6 (8.4-10.2) mg/dL Total Bilirubin 0.3 (0.0-1.0) mg/dL AST 36 H (5-31) U/L ALT 26 (0-31) U/L Alkaline Phosphatase 133 H (39-117) U/L Total Protein 7.3 (6.5-8.0) g/dL Albumin 3.7 (3.5-5.0) g/dL Discharge Plan Discharge Clinical Impression: Blood glucose elevated Patient Disposition: Left W/O Completing Treatment Prescriptions: No Action fentanyl 25 mcg/hr Patch 72 Hour 1 patch TRANSDERMAL Q72H Qty: 5 0RF Rx Instructions: Partial Fill upon patient request. oxycodone-acetaminophen [Percocet] 5-325 mg tablet 1 tab PO Q6H PRN (Reason: pain) Qty: 30 0RF Rx Instructions: Partial Fill upon patient request. sennosides [Karen-michael] 8.6 mg Tablet 8.6 mg PO BID Qty: 60 5RF citalopram 20 mg tablet 40 mg PO DAILY multivitamin [Daily-Tanai] Tablet 1 tab PO DAILY latanoprost 0.005 % drops 1 drp ophthalmic (eye) BEDTIME acetaminophen [Pain Relief ES (acetaminophen)] 500 mg tablet 1 tab PO Q8H PRN (Reason: Pain) albuterol sulfate [ProAir HFA] 90 mcg/actuation HFA aerosol inhaler 2 puff PO Q4-6H PRN (Reason: Wheezing) gabapentin 300 mg Tablet 300 mg PO BEDTIME amlodipine 5 mg tablet 1 tab PO DAILY lorazepam 0.5 mg tablet 1 tab PO BID PRN (Reason: Anxiety) fentanyl 50 mcg/hr Patch 72 Hour 1 patch TRANSDERMAL Q72H Qty: 10 0RF Rx Instructions: Partial Fill upon patient request. lidocaine 5 % adhesive patch,medicated 1 patch topical DAILY Qty: 15 0RF Rx Instructions: leave on most painful area for up to 12 hrs naproxen 500 mg tablet 500 mg PO BID PRN (Reason: pain) Qty: 20 0RF metoprolol succinate 50 mg tablet extended release 24 hr 50 mg PO DAILY polyethylene glycol 3350 [Miralax] 17 gram/dose powder 17 g PO ONCE Qty: 510 4RF Rx Instructions: As directed by gastroenterology department at [facility] aspirin 81 mg tablet,delayed release (DR/EC) 81 mg PO DAILY (DME) lancets [FreeStyle Lancets] 28 gauge misc See Rx Instructions .ROUTE BID Qty: 100 Rx Instructions: As directed (DME) FreeStyle Lite Strips Strip See Rx Instructions .ROUTE BID Qty: 10 Rx Instructions: As directed Discharge Date/Time: 07/30/23 22:17
--- NOTE | 2023-07-30 22:12 | PC.NURSE ---
No answer in the WR @ this time.
== END 2023-07-30 22:17 | disposition left against medical advice (07) ==
LOC: HO.ED 22:14
PROVIDERS: Emergency Provider Emergency Medicine; PCP Nurse Practitioner Primary Care
DX: E11.65 Type 2 diabetes mellitus with hyperglycemia (principal); I10 Essential (primary) hypertension; Z79.82 Long term (current) use of aspirin; Z79.02 Long term (current) use of antithrombotics/antiplatelets
CPT/HCPCS: 36415; 80053; 82947; 85025; 99282; 99283

== ENCOUNTER 2023-11-25 18:04 | Outpatient (REF) | payer OTHER, SELFPAY ==
[2023-11-25 18:21] LABS: Appearance Urine Clear; Color Urine Yellow; Glucose Urine UA >=1000 mg/dL (Negative); Leukocyte Esterase Urine Negative (Negative); Nitrite Urine Negative (Negative); PH 5.5 (5.0-9.0); Specific Gravity - Urine >= 1.030 (1.005-1.025); UMIC TRIGGER UACC YES; Urine Blood Negative (Negative); Urine Ketones Negative (Negative); Urine Protein Negative (Neg-Trace)
[2023-11-25 19:01] LABS: Bacteria Urine None Seen (None Seen); Hyaline Casts Urine 0-2 /LPF (0-2); RBC Urine 0-2 /HPF (0-2); Squamous Epithelial Cell Urine 0-2 /HPF (0-2); WBC Urine 0-5 /HPF (0-5)
== END 2023-11-25 18:05 | disposition home or self-care (01) ==
LOC: HO.HHCLNP 18:04
PROVIDERS: Visit Provider Nurse Practitioner Primary Care
DX: R30.0 Dysuria (principal)
CPT/HCPCS: 81001

== ENCOUNTER 2023-11-25 19:36 | Outpatient (REF) | payer OTHER, SELFPAY ==
[2023-11-26 11:37] LABS: BV Int Neg Control Negative (Negative); BV Int Pos Control Positive (Positive)
== END 2023-11-25 19:37 | disposition home or self-care (01) ==
LOC: HO.HHCLNP 19:36
PROVIDERS: Visit Provider Nurse Practitioner Primary Care
DX: N89.8 Other specified noninflammatory disorders of vagina (principal)
CPT/HCPCS: 87480; 87510; 87660

== ENCOUNTER 2024-02-03 17:53 | Outpatient (REF) | payer OTHER, SELFPAY ==
[2024-02-06 17:03] LABS: C. trachomatis RNA TMA NOT DETECTED (NOT DETECTED); N. gonorrhoeae RNA TMA NOT DETECTED (NOT DETECTED)
== END 2024-02-03 17:54 | disposition home or self-care (01) ==
LOC: HO.HHCLNP 17:53
PROVIDERS: Visit Provider Nurse Practitioner Primary Care
DX: N89.8 Other specified noninflammatory disorders of vagina (principal)
CPT/HCPCS: 36415; 81513; 87491; 87591